=== PATIENT | male | born 1945 | race Caucasian/White ===

== ENCOUNTER 2016-12-19 19:46 | Outpatient (CLI) | payer MEDICARE, OTHER ==
--- NOTE | 2016-12-19 21:55 | Ultrasound Preliminary Report ---
Exam: US Duplex Ext Veins Bilateral IMPRESSION: Bilateral calf edema limiting assessment of the peroneal veins otherwise no evidence of d eep venous thrombosis. [facility] SITE ID: [id number]
--- NOTE | 2016-12-19 21:57 | Ultrasound Report ---
EXAM: BILATERAL LOWER EXTREMITY VENOUS ULTRASOUND EXAM DATE: 12/19/2016 09:36 PM. CLINICAL HISTORY: SWELLING OF BILATERAL LEGS, CELLULITIS OF LT LOWER. COMPARISON: None. TECHNIQUE: Real-time sonographic vascular imaging was performed by the nuclear medicine tech through the lower extremities utilizing both color-flow and Doppler spectral analysis. Multiple pharmacy services representative static i mages were saved for review. FINDINGS: Right: Common Femoral Vein (CFV): Normal. CFV-GSV Junction: Normal. Profunda Femoral Vein (PFV): Normal. Femoral Vein (FV) Prox: Normal. Femoral Vein (FV) Mid: Normal. Femoral Vein (FV) Dist: Normal. Popliteal Vein: Normal. Posterior Tibial Veins: Normal. Peroneal Veins: Suboptimal visualization due to edema. Left: Common Femoral Vein (CFV): Normal. CFV-GSV Junction: Normal. Profunda Femoral Vein (PFV): Normal. Femoral Vein (FV) Prox: Normal. Femoral Vein (FV) Mid: Normal. Femoral Vein (FV) Dist: Normal. Popliteal Vein: Normal. Posterior Tibial Veins: Normal. Peroneal Veins: Suboptimal visualization due to edema. Other: None. IMPRESSION: Bilateral calf edema limiting assessment of the peroneal veins otherwise no evidence of d eep venous thrombosis. [facility] Referring Provider Line: [phone] SITE ID: [id number]
== END 2016-12-19 19:47 | disposition home or self-care (01) ==
LOC: DI 19:46
PROVIDERS: ATTEND Family Medicine
DX: R60.0 Localized edema (principal)
CPT/HCPCS: 93970

== ENCOUNTER 2017-05-29 15:09 | Outpatient (CLI) | payer MEDICARE, OTHER ==
[2017-05-29 19:30] LABS: BASOPHILS % (AUTO) 0.4 %; EOSINOPHILS # (AUTO) 0.2 10^3/uL (0.0-0.7); EOSINOPHILS % (AUTO) 1.8 %; HGB - HEMOGLOBIN 16.4 g/dL (14.0-18.0); LYMPHOCYTES # (AUTO) 3.4 10^3/uL (1.5-3.5); LYMPHOCYTES % (AUTO) 39.6 %; MEAN CORPUSCULAR HEMOGLOBIN 31.1 pg (27.0-31.0); MEAN CORPUSCULAR VOLUME 94.5 fL (80.0-94.0); MEAN PLATELET VOLUME 8.7 fL (7.4-11.4); MONOCYTES # (AUTO) 0.7 10^3/uL (0.0-1.0); MONOCYTES % (AUTO) 7.7 %; NEUTROPHILS # (AUTO) 4.4 10^3/uL (1.5-6.6); NEUTROPHILS % (AUTO) 50.5 %; PLT - PLATELET COUNT 231 10^3/uL (130-450); RED BLOOD COUNT 5.27 10^6/uL (4.70-6.10); RED CELL DISTRIBUTION WIDTH 14.8 % (12.0-15.0); WHITE BLOOD COUNT 8.7 x10^3/uL (4.8-10.8)
[2017-05-29 19:33] LABS: ALBUMIN 4.5 g/dL (3.2-5.5); ALBUMIN/GLOBULIN RATIO 1.5 (1.0-2.2); BILIRUBIN,TOTAL 1.3 mg/dL (0.2-1.0); CALCIUM 9.6 mg/dL (8.5-10.3); CREATININE 0.8 mg/dL (0.6-1.2); TOTAL PROTEIN 7.5 g/dL (6.7-8.2)
== END 2017-05-29 15:10 | disposition home or self-care (01) ==
LOC: LAB.WCP 15:09
PROVIDERS: ATTEND Internal Medicine Rheumatology
DX: M05.79 Rheumatoid arthritis with rheumatoid factor of multiple sites without organ or systems involvement (principal)
CPT/HCPCS: 36415; 80053; 85025; 85651

== ENCOUNTER 2017-08-27 08:00 | Outpatient (CLI) | payer MEDICARE, OTHER ==
[2017-08-27 19:43] LABS: ALBUMIN 4.4 g/dL (3.2-5.5); ALBUMIN/GLOBULIN RATIO 1.4 (1.0-2.2); ALKALINE PHOSPHATASE 47 IU/L (42-121); ALT ALANINE AMINOTRANSFERASE 33 IU/L (10-60); AST ASPARTATE AMINOTRANSFERASE 30 IU/L (10-42); BILIRUBIN,TOTAL 0.9 mg/dL (0.2-1.0); BUN - BLOOD UREA NITROGEN 17 mg/dL (6-20); CARBON DIOXIDE - CO2 27 mmol/L (21-32); CHLORIDE 102 mmol/L (101-111); CHOL/HDL RATIO 3.8 (<5.0); CHOLESTEROL 117 mg/dL; CREATININE 0.8 mg/dL (0.6-1.2); GFR - MDRD 94 (>89); GLUCOSE 122 mg/dL (70-100); HDL CHOLESTEROL 31 mg/dL; LDL CHOLESTEROL,CALCULATED 48 mg/dL; LDL/HDL RATIO 1.5 (<3.6); SODIUM 137 mmol/L (135-145); TOTAL PROTEIN 7.5 g/dL (6.7-8.2); VLDL CHOLESTEROL 38 mg/dL
[2017-08-27 20:04] LABS: HB2 TOTAL 18.1 g/dL; HEMOGLOBIN A1C 0.68 g/dL; HEMOGLOBIN A1C % 5.6 % (4.6-6.2)
== END 2017-08-27 08:01 | disposition home or self-care (01) ==
LOC: LAB.WCP 08:00
PROVIDERS: ATTEND Family Medicine
DX: E11.9 Type 2 diabetes mellitus without complications (principal); J92.9 Pleural plaque without asbestos; I87.2 Venous insufficiency (chronic) (peripheral); J44.9 Chronic obstructive pulmonary disease, unspecified; M06.9 Rheumatoid arthritis, unspecified
CPT/HCPCS: 36415; 80053; 80061; 82043; 83036; 83721

== ENCOUNTER 2017-11-13 08:00 | Outpatient (CLI) | payer MEDICARE, OTHER ==
[2017-11-13 19:06] LABS: BASOPHILS % (AUTO) 0.3 %; EOSINOPHILS # (AUTO) 0.1 10^3/uL (0.0-0.7); EOSINOPHILS % (AUTO) 1.4 %; HGB - HEMOGLOBIN 16.8 g/dL (14.0-18.0); LYMPHOCYTES # (AUTO) 4.1 10^3/uL (1.5-3.5); LYMPHOCYTES % (AUTO) 42.7 %; MEAN CORPUSCULAR HEMOGLOBIN 32.8 pg (27.0-31.0); MEAN CORPUSCULAR HGB CONC 33.2 g/dL (32.0-36.0); MONOCYTES # (AUTO) 0.7 10^3/uL (0.0-1.0); MONOCYTES % (AUTO) 7.3 %; NEUTROPHILS # (AUTO) 4.6 10^3/uL (1.5-6.6); NEUTROPHILS % (AUTO) 48.3 %; PLT - PLATELET COUNT 259 10^3/uL (130-450); RED BLOOD COUNT 5.12 10^6/uL (4.70-6.10); RED CELL DISTRIBUTION WIDTH 13.6 % (12.0-15.0); WHITE BLOOD COUNT 9.5 x10^3/uL (4.8-10.8)
[2017-11-13 19:23] LABS: ALBUMIN 4.3 g/dL (3.2-5.5); ALBUMIN/GLOBULIN RATIO 1.1 (1.0-2.2); BILIRUBIN,TOTAL 1.4 mg/dL (0.2-1.0); CALCIUM 9.2 mg/dL (8.5-10.3); CREATININE 0.9 mg/dL (0.6-1.2); TOTAL PROTEIN 8.1 g/dL (6.7-8.2)
== END 2017-11-13 08:01 | disposition home or self-care (01) ==
LOC: LAB.WCP 08:00
PROVIDERS: ATTEND Internal Medicine Rheumatology
DX: M05.79 Rheumatoid arthritis with rheumatoid factor of multiple sites without organ or systems involvement (principal)
CPT/HCPCS: 36415; 80053; 85025; 85651

== ENCOUNTER 2018-03-05 14:20 | Outpatient (CLI) | payer MEDICARE, OTHER ==
[2018-03-05 18:55] LABS: BASOPHILS % (AUTO) 0.5 %; EOSINOPHILS # (AUTO) 0.2 10^3/uL (0.0-0.7); LYMPHOCYTES # (AUTO) 3.4 10^3/uL (1.5-3.5); LYMPHOCYTES % (AUTO) 35.9 %; MEAN CORPUSCULAR HEMOGLOBIN 32.5 pg (27.0-31.0); MEAN CORPUSCULAR HGB CONC 33.9 g/dL (32.0-36.0); MEAN CORPUSCULAR VOLUME 95.9 fL (80.0-94.0); MEAN PLATELET VOLUME 8.1 fL (7.4-11.4); MONOCYTES # (AUTO) 0.7 10^3/uL (0.0-1.0); MONOCYTES % (AUTO) 7.7 %; NEUTROPHILS # (AUTO) 5.1 10^3/uL (1.5-6.6); NEUTROPHILS % (AUTO) 53.9 %; PLT - PLATELET COUNT 250 10^3/uL (130-450); RED BLOOD COUNT 4.91 10^6/uL (4.70-6.10); RED CELL DISTRIBUTION WIDTH 13.8 % (12.0-15.0); WHITE BLOOD COUNT 9.5 x10^3/uL (4.8-10.8)
[2018-03-05 19:05] LABS: ALBUMIN 4.4 g/dL (3.2-5.5); ALBUMIN/GLOBULIN RATIO 1.5 (1.0-2.2); CALCIUM 9.4 mg/dL (8.5-10.3); CREATININE 0.8 mg/dL (0.6-1.2); TOTAL PROTEIN 7.3 g/dL (6.7-8.2)
== END 2018-03-05 14:21 | disposition home or self-care (01) ==
LOC: LAB.WCP 14:20
PROVIDERS: ATTEND Internal Medicine Rheumatology
DX: M05.79 Rheumatoid arthritis with rheumatoid factor of multiple sites without organ or systems involvement (principal)
CPT/HCPCS: 36415; 80053; 85025; 85651

== ENCOUNTER 2018-06-11 08:00 | Outpatient (CLI) | payer MEDICARE, OTHER ==
[2018-06-11 19:10] LABS: BASOPHILS % (AUTO) 0.4 %; EOSINOPHILS # (AUTO) 0.2 10^3/uL (0.0-0.7); HGB - HEMOGLOBIN 15.4 g/dL (14.0-18.0); LYMPHOCYTES # (AUTO) 3.7 10^3/uL (1.5-3.5); MEAN CORPUSCULAR HEMOGLOBIN 32.6 pg (27.0-31.0); MEAN CORPUSCULAR HGB CONC 33.6 g/dL (32.0-36.0); MEAN CORPUSCULAR VOLUME 97.1 fL (80.0-94.0); MEAN PLATELET VOLUME 8.5 fL (7.4-11.4); MONOCYTES # (AUTO) 0.9 10^3/uL (0.0-1.0); MONOCYTES % (AUTO) 8.3 %; NEUTROPHILS # (AUTO) 5.8 10^3/uL (1.5-6.6); NEUTROPHILS % (AUTO) 54.3 %; PLT - PLATELET COUNT 227 10^3/uL (130-450); RED BLOOD COUNT 4.73 10^6/uL (4.70-6.10); RED CELL DISTRIBUTION WIDTH 14.5 % (12.0-15.0); WHITE BLOOD COUNT 10.7 x10^3/uL (4.8-10.8)
[2018-06-11 19:43] LABS: ALBUMIN 4.1 g/dL (3.2-5.5); ALBUMIN/GLOBULIN RATIO 1.4 (1.0-2.2); BILIRUBIN,TOTAL 0.7 mg/dL (0.2-1.0); CREATININE 0.7 mg/dL (0.6-1.2); TOTAL PROTEIN 7.1 g/dL (6.7-8.2)
[2018-06-11 20:31] LABS: CALCIUM 9.3 mg/dL (8.5-10.3)
== END 2018-06-11 23:59 | disposition home or self-care (01) ==
LOC: LAB.WCP 08:00
PROVIDERS: ATTEND Internal Medicine Rheumatology
DX: M05.79 Rheumatoid arthritis with rheumatoid factor of multiple sites without organ or systems involvement (principal)
CPT/HCPCS: 36415; 80053; 85025; 85651

== ENCOUNTER 2018-11-26 08:00 | Outpatient (CLI) | payer MEDICARE, OTHER ==
[2018-11-26 18:39] LABS: BASOPHILS % (AUTO) 0.5 %; EOSINOPHILS # (AUTO) 0.1 10^3/uL (0.0-0.7); EOSINOPHILS % (AUTO) 1.4 %; LYMPHOCYTES # (AUTO) 3.1 10^3/uL (1.5-3.5); LYMPHOCYTES % (AUTO) 35.5 %; MEAN CORPUSCULAR HEMOGLOBIN 32.9 pg (27.0-31.0); MEAN CORPUSCULAR VOLUME 99.8 fL (80.0-94.0); MEAN PLATELET VOLUME 10.1 fL (7.4-11.4); MONOCYTES # (AUTO) 0.6 10^3/uL (0.0-1.0); MONOCYTES % (AUTO) 7.4 %; NEUTROPHILS # (AUTO) 4.7 10^3/uL (1.5-6.6); NEUTROPHILS % (AUTO) 54.5 %; PLT - PLATELET COUNT 225 10^3/uL (130-450); RED BLOOD COUNT 4.86 10^6/uL (4.70-6.10); RED CELL DISTRIBUTION WIDTH 13.6 % (12.0-15.0); WHITE BLOOD COUNT 8.6 x10^3/uL (4.8-10.8)
[2018-11-26 18:42] LABS: ALBUMIN 4.1 g/dL (3.2-5.5); ALBUMIN/GLOBULIN RATIO 1.2 (1.0-2.2); BILIRUBIN,TOTAL 1.3 mg/dL (0.2-1.0); CALCIUM 9.5 mg/dL (8.5-10.3); CREATININE 1.1 mg/dL (0.6-1.2); TOTAL PROTEIN 7.5 g/dL (6.7-8.2)
== END 2018-11-26 23:59 | disposition home or self-care (01) ==
LOC: LAB.WCP 08:00
PROVIDERS: ATTEND Internal Medicine Rheumatology
DX: M05.79 Rheumatoid arthritis with rheumatoid factor of multiple sites without organ or systems involvement (principal)
CPT/HCPCS: 36415; 80053; 85025; 85651

== ENCOUNTER 2019-01-22 08:00 | Outpatient (CLI) | payer MEDICARE, OTHER ==
[2019-01-22 11:53] LABS: CHOL/HDL RATIO 4.7 (<5.0); CHOLESTEROL 136 mg/dL; HDL CHOLESTEROL 29 mg/dL; LDL CHOLESTEROL,CALCULATED 52 mg/dL; LDL/HDL RATIO 1.8 (<3.6); VLDL CHOLESTEROL 55 mg/dL
== END 2019-01-22 23:59 ==
LOC: LAB.R 08:00
PROVIDERS: ATTEND Family Medicine
DX: I10 Essential (primary) hypertension (principal); E78.5 Hyperlipidemia, unspecified; I25.10 Atherosclerotic heart disease of native coronary artery without angina pectoris
CPT/HCPCS: 80061; 83721; 84443

== ENCOUNTER 2019-04-15 14:24 | Outpatient (CLI) | payer MEDICARE, OTHER ==
[2019-04-15 18:36] LABS: BASOPHILS % (AUTO) 0.4 %; EOSINOPHILS # (AUTO) 0.2 10^3/uL (0.0-0.7); EOSINOPHILS % (AUTO) 2.1 %; HGB - HEMOGLOBIN 15.6 g/dL (14.0-18.0); LYMPHOCYTES # (AUTO) 3.1 10^3/uL (1.5-3.5); LYMPHOCYTES % (AUTO) 38.2 %; MEAN CORPUSCULAR HEMOGLOBIN 31.8 pg (27.0-31.0); MEAN CORPUSCULAR VOLUME 99.4 fL (80.0-94.0); MEAN PLATELET VOLUME 10.1 fL (7.4-11.4); MONOCYTES # (AUTO) 0.6 10^3/uL (0.0-1.0); MONOCYTES % (AUTO) 7.4 %; NEUTROPHILS # (AUTO) 4.2 10^3/uL (1.5-6.6); NEUTROPHILS % (AUTO) 51.4 %; PLT - PLATELET COUNT 242 10^3/uL (130-450); RED CELL DISTRIBUTION WIDTH 13.7 % (12.0-15.0); WHITE BLOOD COUNT 8.2 x10^3/uL (4.8-10.8)
[2019-04-15 18:54] LABS: ALBUMIN 4.3 g/dL (3.2-5.5); ALBUMIN/GLOBULIN RATIO 1.3 (1.0-2.2); CALCIUM 9.6 mg/dL (8.5-10.3); CREATININE 1.1 mg/dL (0.6-1.2); TOTAL PROTEIN 7.5 g/dL (6.7-8.2)
== END 2019-04-15 23:59 | disposition home or self-care (01) ==
LOC: LAB.WCP 14:24
PROVIDERS: ATTEND Internal Medicine Rheumatology
DX: M05.79 Rheumatoid arthritis with rheumatoid factor of multiple sites without organ or systems involvement (principal)
CPT/HCPCS: 36415; 80053; 85025; 85651

== ENCOUNTER 2019-05-06 13:29 | Outpatient (CLI) | payer MEDICARE, OTHER ==
[2019-05-06 18:57] LABS: ALBUMIN 4.1 g/dL (3.2-5.5); ALBUMIN/GLOBULIN RATIO 1.2 (1.0-2.2); BILIRUBIN,TOTAL 1.1 mg/dL (0.2-1.0); CALCIUM 9.5 mg/dL (8.5-10.3); TOTAL PROTEIN 7.5 g/dL (6.7-8.2)
[2019-05-06 19:03] LABS: CREATININE,URINE 300.8 mg/dL; MICROALBUM/CREATININE RATIO,UR 126.7 ug/mg (<30.0); MICROALBUMIN,URINE 38.1 mg/dL (0-300.0)
[2019-05-06 19:10] LABS: HB2 TOTAL 16.1 g/dL; HEMOGLOBIN A1C 0.78 g/dL; HEMOGLOBIN A1C % 6.6 % (4.6-6.2)
[2019-05-07 12:06] LABS: HEPATITIS B SURFACE ANTIGEN NON-REACTIVE (NON-REACTIVE)
[2019-05-07 12:15] LABS: HEPATITIS C ANTIBODY NON-REACTIVE (NON-REACTIVE)
== END 2019-05-06 23:59 | disposition home or self-care (01) ==
LOC: LAB.WCP 13:29
PROVIDERS: ATTEND Family Medicine
DX: E11.9 Type 2 diabetes mellitus without complications (principal); J32.9 Chronic sinusitis, unspecified; J44.9 Chronic obstructive pulmonary disease, unspecified; I25.10 Atherosclerotic heart disease of native coronary artery without angina pectoris; R74.0 Nonspecific elevation of levels of transaminase and lactic acid dehydrogenase [LDH]
CPT/HCPCS: 36415; 80053; 82043; 82570; 83036; 84443; 86803; 87340

== ENCOUNTER 2020-01-06 08:00 | Outpatient (CLI) | payer MEDICARE, OTHER ==
[2020-01-06 18:47] LABS: BASOPHILS % (AUTO) 0.4 %; EOSINOPHILS # (AUTO) 0.2 10^3/uL (0.0-0.7); EOSINOPHILS % (AUTO) 2.1 %; HGB - HEMOGLOBIN 14.8 g/dL (14.0-18.0); LYMPHOCYTES # (AUTO) 2.3 10^3/uL (1.5-3.5); LYMPHOCYTES % (AUTO) 25.6 %; MEAN CORPUSCULAR HEMOGLOBIN 32.6 pg (27.0-31.0); MEAN CORPUSCULAR HGB CONC 32.2 g/dL (32.0-36.0); MEAN CORPUSCULAR VOLUME 101.3 fL (80.0-94.0); MEAN PLATELET VOLUME 10.1 fL (7.4-11.4); MONOCYTES # (AUTO) 0.7 10^3/uL (0.0-1.0); MONOCYTES % (AUTO) 7.1 %; NEUTROPHILS # (AUTO) 5.8 10^3/uL (1.5-6.6); NEUTROPHILS % (AUTO) 64.1 %; PLT - PLATELET COUNT 248 10^3/uL (130-450); RED BLOOD COUNT 4.54 10^6/uL (4.70-6.10); RED CELL DISTRIBUTION WIDTH 13.8 % (12.0-15.0); WHITE BLOOD COUNT 9.1 x10^3/uL (4.8-10.8)
[2020-01-06 18:54] LABS: CREATININE,URINE 208.8 mg/dL; MICROALBUM/CREATININE RATIO,UR 138.9 ug/mg (<30.0)
[2020-01-06 19:15] LABS: ALBUMIN 4.1 g/dL (3.2-5.5); ALBUMIN/GLOBULIN RATIO 1.2 (1.0-2.2); BILIRUBIN,TOTAL 0.7 mg/dL (0.2-1.0); CALCIUM 9.3 mg/dL (8.5-10.3); CREATININE 0.9 mg/dL (0.6-1.2); TOTAL PROTEIN 7.5 g/dL (6.7-8.2)
[2020-01-06 19:29] LABS: HB2 TOTAL 15.4 g/dL; HEMOGLOBIN A1C 0.71 g/dL; HEMOGLOBIN A1C % 6.4 % (4.6-6.2)
== END 2020-01-06 23:59 | disposition home or self-care (01) ==
LOC: LAB.WCP 08:00
PROVIDERS: ATTEND Family Medicine
DX: M05.79 Rheumatoid arthritis with rheumatoid factor of multiple sites without organ or systems involvement (principal); E11.9 Type 2 diabetes mellitus without complications; F41.9 Anxiety disorder, unspecified; I10 Essential (primary) hypertension; J32.9 Chronic sinusitis, unspecified; J44.9 Chronic obstructive pulmonary disease, unspecified; I25.10 Atherosclerotic heart disease of native coronary artery without angina pectoris
CPT/HCPCS: 36415; 80048; 80053; 82043; 82570; 83036; 85025; 85651

== ENCOUNTER 2020-03-30 08:00 | Outpatient (CLI) | payer MEDICARE, OTHER ==
[2020-03-30 18:10] LABS: BASOPHILS % (AUTO) 0.2 %; EOSINOPHILS # (AUTO) 0.1 10^3/uL (0.0-0.7); EOSINOPHILS % (AUTO) 1.3 %; HGB - HEMOGLOBIN 15.8 g/dL (14.0-18.0); LYMPHOCYTES # (AUTO) 3.3 10^3/uL (1.5-3.5); LYMPHOCYTES % (AUTO) 34.9 %; MEAN CORPUSCULAR HEMOGLOBIN 32.5 pg (27.0-31.0); MEAN CORPUSCULAR HGB CONC 33.1 g/dL (32.0-36.0); MEAN CORPUSCULAR VOLUME 98.4 fL (80.0-94.0); MEAN PLATELET VOLUME 10.7 fL (7.4-11.4); MONOCYTES # (AUTO) 0.7 10^3/uL (0.0-1.0); MONOCYTES % (AUTO) 7.7 %; NEUTROPHILS # (AUTO) 5.3 10^3/uL (1.5-6.6); NEUTROPHILS % (AUTO) 55.4 %; PLT - PLATELET COUNT 248 10^3/uL (130-450); RED BLOOD COUNT 4.86 10^6/uL (4.70-6.10); RED CELL DISTRIBUTION WIDTH 13.3 % (12.0-15.0); WHITE BLOOD COUNT 9.5 x10^3/uL (4.8-10.8)
[2020-03-30 18:28] LABS: ALBUMIN 4.1 g/dL (3.2-5.5); ALBUMIN/GLOBULIN RATIO 1.3 (1.0-2.2); BILIRUBIN,TOTAL 0.8 mg/dL (0.2-1.0); CREATININE 0.9 mg/dL (0.6-1.2); TOTAL PROTEIN 7.3 g/dL (6.7-8.2)
== END 2020-03-30 23:59 | disposition home or self-care (01) ==
LOC: LAB.WCP 08:00
PROVIDERS: ATTEND Internal Medicine Rheumatology
DX: M05.79 Rheumatoid arthritis with rheumatoid factor of multiple sites without organ or systems involvement (principal)
CPT/HCPCS: 36415; 80053; 85025; 85651

== ENCOUNTER 2020-07-12 08:00 | Outpatient (CLI) | payer MEDICARE, OTHER ==
[2020-07-12 18:54] LABS: CREATININE,URINE 268.4 mg/dL; MICROALBUMIN,URINE 9.4 mg/dL (0-300.0)
[2020-07-12 19:23] LABS: CHOL/HDL RATIO 4.2 (<5.0); CHOLESTEROL 130 mg/dL; HDL CHOLESTEROL 31 mg/dL; LDL CHOLESTEROL,CALCULATED 28 mg/dL; LDL/HDL RATIO 0.9 (<3.6); VLDL CHOLESTEROL 71 mg/dL
[2020-07-12 20:46] LABS: HEMOGLOBIN A1c% 5.7 % (4.27-6.07)
== END 2020-07-12 23:59 | disposition home or self-care (01) ==
LOC: LAB.WCP 08:00
PROVIDERS: ATTEND Family Medicine
DX: E11.9 Type 2 diabetes mellitus without complications (principal); I25.10 Atherosclerotic heart disease of native coronary artery without angina pectoris; G47.33 Obstructive sleep apnea (adult) (pediatric)
CPT/HCPCS: 36415; 80061; 82043; 82570; 83036; 83721; 84443

== ENCOUNTER 2020-09-28 14:36 | Outpatient (CLI) | payer MEDICARE, OTHER ==
[2020-09-28 18:04] LABS: BASOPHILS % (AUTO) 0.3 %; EOSINOPHILS # (AUTO) 0.2 10^3/uL (0.0-0.7); EOSINOPHILS % (AUTO) 1.8 %; HCT - HEMATOCRIT 48.7 % (42.0-52.0); HGB - HEMOGLOBIN 16.1 g/dL (14.0-18.0); LYMPHOCYTES # (AUTO) 4.2 10^3/uL (1.5-3.5); LYMPHOCYTES % (AUTO) 41.6 %; MEAN CORPUSCULAR HEMOGLOBIN 32.7 pg (27.0-31.0); MEAN CORPUSCULAR HGB CONC 33.1 g/dL (32.0-36.0); MEAN PLATELET VOLUME 10.4 fL (7.4-11.4); MONOCYTES # (AUTO) 0.8 10^3/uL (0.0-1.0); NEUTROPHILS # (AUTO) 4.8 10^3/uL (1.5-6.6); NEUTROPHILS % (AUTO) 47.8 %; PLT - PLATELET COUNT 247 10^3/uL (130-450); RED BLOOD COUNT 4.92 10^6/uL (4.70-6.10); RED CELL DISTRIBUTION WIDTH 13.5 % (12.0-15.0)
[2020-09-28 18:54] LABS: ALBUMIN 4.6 g/dL (3.2-5.5); ALBUMIN/GLOBULIN RATIO 1.4 (1.0-2.2); BILIRUBIN,TOTAL 0.9 mg/dL (0.2-1.0); CALCIUM 9.6 mg/dL (8.5-10.3); CREATININE 0.9 mg/dL (0.6-1.2); POTASSIUM 4.3 mmol/L (3.5-5.0); TOTAL PROTEIN 7.9 g/dL (6.7-8.2)
== END 2020-09-28 23:59 | disposition home or self-care (01) ==
LOC: LAB.WCP 14:36
PROVIDERS: ATTEND Internal Medicine Rheumatology
DX: M05.79 Rheumatoid arthritis with rheumatoid factor of multiple sites without organ or systems involvement (principal)
CPT/HCPCS: 36415; 80053; 85025; 85651

== ENCOUNTER 2021-01-18 08:00 | Outpatient (CLI) | payer MEDICARE, OTHER ==
[2021-01-18 17:57] LABS: BASOPHILS # (AUTO) 0.1 10^3/uL (0.0-0.1); BASOPHILS % (AUTO) 0.5 %; EOSINOPHILS # (AUTO) 0.2 10^3/uL (0.0-0.7); HCT - HEMATOCRIT 48.5 % (42.0-52.0); HGB - HEMOGLOBIN 15.8 g/dL (14.0-18.0); LYMPHOCYTES # (AUTO) 4.4 10^3/uL (1.5-3.5); LYMPHOCYTES % (AUTO) 43.3 %; MEAN CORPUSCULAR HEMOGLOBIN 32.6 pg (27.0-31.0); MEAN CORPUSCULAR HGB CONC 32.6 g/dL (32.0-36.0); MEAN CORPUSCULAR VOLUME 100.2 fL (80.0-94.0); MEAN PLATELET VOLUME 10.3 fL (7.4-11.4); MONOCYTES # (AUTO) 0.8 10^3/uL (0.0-1.0); MONOCYTES % (AUTO) 7.4 %; NEUTROPHILS # (AUTO) 4.8 10^3/uL (1.5-6.6); NEUTROPHILS % (AUTO) 46.4 %; PLT - PLATELET COUNT 252 10^3/uL (130-450); RED BLOOD COUNT 4.84 10^6/uL (4.70-6.10); RED CELL DISTRIBUTION WIDTH 13.4 % (12.0-15.0); WHITE BLOOD COUNT 10.3 x10^3/uL (4.8-10.8)
[2021-01-18 18:18] LABS: ALBUMIN 4.1 g/dL (3.2-5.5); ALBUMIN/GLOBULIN RATIO 1.2 (1.0-2.2); BILIRUBIN,TOTAL 1.2 mg/dL (0.2-1.0); CALCIUM 9.6 mg/dL (8.5-10.3); CREATININE 1.2 mg/dL (0.6-1.2); POTASSIUM 4.4 mmol/L (3.5-5.0); TOTAL PROTEIN 7.6 g/dL (6.7-8.2)
== END 2021-01-18 23:59 | disposition home or self-care (01) ==
LOC: LAB.WCP 08:00
PROVIDERS: ATTEND Internal Medicine Rheumatology
DX: M05.79 Rheumatoid arthritis with rheumatoid factor of multiple sites without organ or systems involvement (principal)
CPT/HCPCS: 36415; 80053; 85025; 85651

== ENCOUNTER 2021-04-26 08:00 | Outpatient (CLI) | payer MEDICARE, OTHER ==
[2021-04-26 18:20] LABS: BASOPHILS # (AUTO) 0.1 10^3/uL (0.0-0.1); BASOPHILS % (AUTO) 0.4 %; EOSINOPHILS # (AUTO) 0.3 10^3/uL (0.0-0.7); EOSINOPHILS % (AUTO) 2.5 %; HCT - HEMATOCRIT 46.7 % (42.0-52.0); HGB - HEMOGLOBIN 15.8 g/dL (14.0-18.0); LYMPHOCYTES % (AUTO) 40.1 %; MEAN CORPUSCULAR HEMOGLOBIN 33.2 pg (27.0-31.0); MEAN CORPUSCULAR HGB CONC 33.8 g/dL (32.0-36.0); MEAN CORPUSCULAR VOLUME 98.1 fL (80.0-94.0); MONOCYTES % (AUTO) 8.2 %; NEUTROPHILS % (AUTO) 48.4 %; PLT - PLATELET COUNT 275 10^3/uL (130-450); RED BLOOD COUNT 4.76 10^6/uL (4.70-6.10); RED CELL DISTRIBUTION WIDTH 13.2 % (12.0-15.0); WHITE BLOOD COUNT 12.4 x10^3/uL (4.8-10.8)
[2021-04-26 18:31] LABS: ALBUMIN 4.4 g/dL (3.2-5.5); ALBUMIN/GLOBULIN RATIO 1.3 (1.0-2.2); BILIRUBIN,TOTAL 0.7 mg/dL (0.2-1.0); CALCIUM 9.5 mg/dL (8.5-10.3); CREATININE 0.8 mg/dL (0.6-1.2); POTASSIUM 4.6 mmol/L (3.5-5.0); TOTAL PROTEIN 7.7 g/dL (6.7-8.2)
== END 2021-04-26 23:59 | disposition home or self-care (01) ==
LOC: LAB.WCP 08:00
PROVIDERS: ATTEND Internal Medicine Rheumatology
DX: M05.79 Rheumatoid arthritis with rheumatoid factor of multiple sites without organ or systems involvement (principal)
CPT/HCPCS: 36415; 80053; 85025; 85651

== ENCOUNTER 2022-03-01 15:54 | Outpatient (CLI) | payer MEDICARE, OTHER ==
[2022-03-01 18:16] LABS: ALBUMIN 3.9 g/dL (3.2-5.5); ALBUMIN/GLOBULIN RATIO 1.3 (1.0-2.2); CREATININE 0.9 mg/dL (0.6-1.2); POTASSIUM 4.6 mmol/L (3.5-5.0); TOTAL PROTEIN 6.8 g/dL (6.7-8.2)
[2022-03-01 18:18] LABS: BASOPHILS % (AUTO) 0.4 %; EOSINOPHILS # (AUTO) 0.2 10^3/uL (0.0-0.7); EOSINOPHILS % (AUTO) 2.5 %; HCT - HEMATOCRIT 42.5 % (42.0-52.0); HGB - HEMOGLOBIN 13.9 g/dL (14.0-18.0); LYMPHOCYTES # (AUTO) 3.1 10^3/uL (1.5-3.5); LYMPHOCYTES % (AUTO) 37.3 %; MEAN CORPUSCULAR HEMOGLOBIN 32.6 pg (27.0-31.0); MEAN CORPUSCULAR HGB CONC 32.7 g/dL (32.0-36.0); MEAN CORPUSCULAR VOLUME 99.8 fL (80.0-94.0); MEAN PLATELET VOLUME 11.2 fL (7.4-11.4); MONOCYTES # (AUTO) 0.7 10^3/uL (0.0-1.0); MONOCYTES % (AUTO) 8.3 %; NEUTROPHILS # (AUTO) 4.3 10^3/uL (1.5-6.6); NEUTROPHILS % (AUTO) 51.3 %; PLT - PLATELET COUNT 189 10^3/uL (130-450); RED BLOOD COUNT 4.26 10^6/uL (4.70-6.10); RED CELL DISTRIBUTION WIDTH 14.2 % (12.0-15.0); WHITE BLOOD COUNT 8.3 x10^3/uL (4.8-10.8)
[2022-03-01 18:27] LABS: THYROID STIMULATING HORMONE 3.71 uIU/mL (0.34-5.60)
[2022-03-01 20:28] LABS: ESTIMATED AVERAGE GLUCOSE 128 mg/dL (70-100); HEMOGLOBIN A1c% 6.1 % (4.27-6.07)
== END 2022-03-01 23:59 | disposition home or self-care (01) ==
LOC: LAB.N 15:54
PROVIDERS: ATTEND Family Medicine
DX: E11.9 Type 2 diabetes mellitus without complications (principal); I25.10 Atherosclerotic heart disease of native coronary artery without angina pectoris; J44.9 Chronic obstructive pulmonary disease, unspecified
CPT/HCPCS: 36415; 80053; 83036; 83880; 84443; 85025

== ENCOUNTER 2022-03-08 12:15 | Outpatient (CLI) | payer MEDICARE, OTHER | END 2022-03-08 12:16 | disposition home or self-care (01) | LOC: DI 12:15 | PROVIDERS: ATTEND Family Medicine | DX: R06.09 Other forms of dyspnea (principal); I25.10 Atherosclerotic heart disease of native coronary artery without angina pectoris; I51.7 Cardiomegaly; I08.1 Rheumatic disorders of both mitral and tricuspid valves; I49.49 Other premature depolarization; I87.8 Other specified disorders of veins | CPT/HCPCS: 93306 ==

== ENCOUNTER 2022-05-01 11:13 | Outpatient (CLI) | payer MEDICARE, OTHER ==
[2022-05-01 17:59] LABS: CALCIUM 9.5 mg/dL (8.5-10.3); CREATININE 1.2 mg/dL (0.6-1.2); POTASSIUM 4.7 mmol/L (3.5-5.0)
[2022-05-01 18:00] LABS: HCT - HEMATOCRIT 47.1 % (42.0-52.0); HGB - HEMOGLOBIN 15.5 g/dL (14.0-18.0); MEAN CORPUSCULAR HGB CONC 32.9 g/dL (32.0-36.0); MEAN CORPUSCULAR VOLUME 100.2 fL (80.0-94.0); MEAN PLATELET VOLUME 10.9 fL (7.4-11.4); RED BLOOD COUNT 4.7 10^6/uL (4.70-6.10); RED CELL DISTRIBUTION WIDTH 13.4 % (12.0-15.0); WHITE BLOOD COUNT 8.8 x10^3/uL (4.8-10.8)
== END 2022-05-01 11:14 | disposition home or self-care (01) ==
LOC: LAB.N 11:13
PROVIDERS: ATTEND Family Medicine
DX: I27.20 Pulmonary hypertension, unspecified (principal); I27.81 Cor pulmonale (chronic); I50.810 Right heart failure, unspecified
CPT/HCPCS: 36415; 80048; 83880; 85027

== ENCOUNTER 2022-08-31 14:54 | Outpatient (CLI) | payer MEDICARE, OTHER ==
[2022-08-31 15:32] LABS: ALBUMIN 4.4 g/dL (3.2-5.5); ALBUMIN/GLOBULIN RATIO 1.3 (1.0-2.2); BILIRUBIN,TOTAL 1.1 mg/dL (0.2-1.0); CALCIUM 9.3 mg/dL (8.5-10.3); CREATININE 0.9 mg/dL (0.6-1.2); POTASSIUM 4.6 mmol/L (3.5-5.0); TOTAL PROTEIN 7.8 g/dL (6.7-8.2)
== END 2022-08-31 14:55 | disposition home or self-care (01) ==
LOC: LAB 14:54
PROVIDERS: ATTEND Internal Medicine Cardiovascular Disease
DX: I10 Essential (primary) hypertension (principal); R06.09 Other forms of dyspnea; M06.9 Rheumatoid arthritis, unspecified
CPT/HCPCS: 36415; 80053; 83880; 85651

== ENCOUNTER 2022-09-10 12:16 | Outpatient (CLI) | payer MEDICARE, OTHER | END 2022-09-10 23:59 | disposition critical access hospital (66) | LOC: EMS 12:16 | DX: M54.6 Pain in thoracic spine (principal); M54.50 Low back pain, unspecified; W17.89XA Other fall from one level to another, initial encounter; Y93.H9 Activity, other involving exterior property and land maintenance, building and construction; Y92.007 Garden or yard of unspecified non-institutional (private) residence as the place of occurrence of the external cause | CPT/HCPCS: A0425; A0427 ==

== ENCOUNTER 2022-09-10 12:47 | Emergency (ER) | payer MEDICARE, OTHER ==
[2022-09-10] MEDS ORDERED: HYDROmorphone 1 MG/ML CARPUJECT IVP STA ×2 (12:54→15:12)
--- NOTE | 2022-09-10 12:56 | ED Physician Documentation ---
PD HPI BACK PAIN - Stated complaint Stated Complaint: FALL FROM MOWER - History obtained from History obtained from: Patient - Additional information Additional information: 77-year-old gentleman with coronary disease, rheumatoid arthritis, hypertension, hyperlipidemia, diabetes presents after a fall from a lawnmower. He was mowing a slope on a riding mower. The slope was too steep and the back wheels gave out and he flipped the riding mower with him in it. There was a bar that hit the back of his head and then pushed his head onto his chest and then another bar hit him between the shoulder blades which is the current site of major pain. No loss of consciousness. He has no headache. He has slight increase in chronic lower back pain. On arrival he has received 50 mcg of fentanyl on the way with incomplete relief of his pain. PD PAST MEDICAL HISTORY - Past Medical History Cardiovascular: Hypertension, High cholesterol, Angina, [place] Respiratory: COPD, Pneumonia, Sleep apnea, Other Endocrine/Autoimmune: Type 2 diabetes GI: None : None HEENT: Chronic vision loss Psych: Depression Musculoskeletal: Osteoarthritis, Rheumatoid arthritis, Gout, Chronic back pain Derm: None - Past Surgical History Past Surgical History: Yes Ortho: Hip replacement, Other Cardiovascular: Cardiac catheterization HEENT: Cataracts - Present Medications Home Medications: Ambulatory Orders Medication Instructions Recorded Confirmed Atorvastatin Calcium 20 mg PO QPM 02/06/13 09/10/22 Metformin HCl 500 mg PO BID 02/06/13 09/10/22 Methotrexate [Methotrexate Sodium] 10 mg PO FR 11/24/15 09/10/22 Folic Acid 1 mg PO DAILY 04/10/16 09/10/22 Montelukast Sodium 4 mg PO DAILY PM 10/18/17 09/10/22 Aspirin [Aspirin EC] 81 mg PO DAILY 02/07/18 09/10/22 Multivitamin [Multiple Vitamins] 1 tab PO DAILY 01/22/19 09/10/22 Furosemide [Lasix] 40 mg PO DAILY 09/10/22 09/10/22 HYDROcod/ACETAM 5/325 [Michie 5/325] 1 - 2 tab PO Q6H PRN #15 tablet 09/10/22 Metoprolol Succinate [Toprol Xl] 25 mg PO DAILY 09/10/22 09/10/22 Spironolactone [Aldactone] 12.5 mg PO DAILY 09/10/22 09/10/22 amLODIPine [Norvasc] 5 mg PO DAILY 09/10/22 09/10/22 glipiZIDE [Glipizide ER] 2.5 mg PO DAILY 09/10/22 09/10/22 inFLIXimab [Remicade] 1 infus.set IV ONCE 09/10/22 09/10/22 - Allergies Allergies/Adverse Reactions: Allergies Allergy/AdvReac Type Severity Reaction Status Date / Time No Known Drug Allergies Allergy Verified 09/10/22 12:56 - Social History Does the pt smoke?: No Smoking Status: Never smoker Does the pt drink ETOH?: No Does the pt have substance abuse?: No - Immunizations Immunizations are current?: Yes - POLST Patient has POLST: No PD ED PE NORMAL - Vitals Vital signs reviewed: Yes - General General: Alert and oriented X 3, No acute distress - HEENT HEENT: PERRL, EOMI - Neck Neck: Supple, no meningeal sign, No bony TTP - Cardiac Cardiac: RRR, No murmur - Respiratory Respiratory: No respiratory distress, Clear bilaterally - Abdomen Abdomen: Normal bowel sounds, Soft, Non tender - Back Back: No CVA TTP, Other (Tender with significant swelling of the upper mid back. Multiple sebaceous cysts in that area.) - Derm Derm: Normal color, Warm and dry - Neuro Neuro: Alert and oriented X 3, No motor deficit, No sensory deficit, Normal speech Eye Opening: Spontaneous Motor: Obeys Commands Verbal: Oriented GCS Score: 15 Results - Vitals Vitals: Vital Signs - 24 hr 09/10/22 09/10/22 12:58 13:40 Temperature 36.4 C L Heart Rate 72 76 Respiratory 20 19 Rate Blood Pressure 128/59 L 138/74 H O2 Saturation 91 L 97 If not protocol 2 : Oxygen Flow, liters/minute Oxygen O2 Source Nasal cannula - Labs Labs: Laboratory Tests 09/10/22 09/10/22 09/10/22 12:56 12:56 13:06 WBC 20.0 H RBC 4.48 L Hgb 14.7 Hct 43.9 MCV 98.0 H MCH 32.8 H MCHC 33.5 RDW 13.5 Plt Count 237 MPV 10.1 Neut # (Auto) 14.2 H Lymph # (Auto) 4.0 H [place] # (Auto) 1.1 H Eos # (Auto) 0.3 Baso # (Auto) 0.1 Absolute Nucleated RBC 0.00 Nucleated RBC % 0.0 PT 11.9 INR 1.1 Sodium 139 Potassium 5.2 H Chloride 104 Carbon Dioxide 27 Anion Gap 8.0 BUN 28 H Creatinine 1.1 Estimated GFR (MDRD) 65 L Glucose 194 H Calcium 9.7 Total Bilirubin 0.8 AST 53 H ALT 36 Alkaline Phosphatase 40 L Total Protein 7.6 Albumin 4.2 Globulin 3.4 Albumin/Globulin Ratio 1.2 Lipase 36 - Rads (name of study) CT of the head without contrast is unremarkable save chronic microvascular ischemic disease Relevant Findings:: Final report received, EMP independent interpretation of test CT of the cervical spine is without acute abnormality. Moderate to severe degenerative changes. Relevant Findings:: Final report received, EMP independent interpretation of test CT of the chest with IV contrast without acute trauma Relevant Findings:: Final report received (Trace right pleural fluid, mild bronchial wall thickening), EMP independent interpretation of test (I do think there is some thickening consistent with hematoma in the skin of the mid upper back) CT of the thoracic spine is without acute trauma Relevant Findings:: Final report received, EMP independent interpretation of test CT of the abdomen pelvis demonstrates bilateral nephroliths, no trauma. Relevant Findings:: Final report received, EMP independent interpretation of test CT of the lumbar spine was negative for acute trauma. Relevant Findings:: Final report received, EMP independent interpretation of test PD Medical Decision Making - ED course Complexity details: reviewed results (CBC notable for leukocytosis at 20,000 probably consistent with leukemoid reaction, INR is normal, CMP notable for mild hyperkalemia and elevated BUN and glucose.) ED course: 77-year-old gentleman flipped over in a riding lawn [employer]. Main site of pain is between the shoulder blades where there appears to be some hematoma/swelling. Because of his age, and the mechanism, a silveira scan was done without other pertinent positive traumatic findings. Incidental findings were shared with the patient. 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 As discussed, there was no specific trauma seen on extensive imaging, that said you do have incidental kidney stones which may or may not bother you at a later date. Call your doctor to arrange a follow-up appointment, make the next available appointment. In the interim, return anytime if worse or if new symptoms develop. I am prescribing a short course of narcotic pain medication for you. These are potentially dangerous and addictive medications that should be used carefully. These medications may constipate you. Take an [id number] stool softener (docusate) twice daily with plenty of water while taking these medications. If you go 24 hours without a bowel movement, take [id number] miralax, per package instructions. Do not drink or drive while taking these medications. If you received narcotic or sedating medications while in the emergency department, do not drive for 24 hours. Store this medication in a safe, secure place and out of reach of children. It is a violation of federal law to give or sell this medication to another person or to use in a manner other than prescribed. The ED will not refill narcotic prescriptions, including prescriptions lost or stolen. To dispose of unwanted medications: 1. [facility] at [address] in [place] has a medication drop box. They accept prescription medications (in pill form) Saturday through Saturday 9:00 a.m. to 5:00 p.m. 2. The [facility] [employer] accepts prescription medications (in pill form only) for disposal year round. Call for more information. 3. Contact the [facility] for the next [facility] sponsored prescription drug collection event. , [phone], or [phone]; Note that many narcotic pain relievers also contain Tylenol/acetaminophen. Please ensure that your total dose of acetaminophen from all sources does not exceed 3 g (3000 mg) per day.
[2022-09-10] MEDS ORDERED: iohexoL-300 100 ML VIAL ONE (13:01)
[2022-09-10 13:03] LABS: BASOPHILS # (AUTO) 0.1 10^3/uL (0.0-0.1); BASOPHILS % (AUTO) 0.4 %; EOSINOPHILS # (AUTO) 0.3 10^3/uL (0.0-0.7); EOSINOPHILS % (AUTO) 1.3 %; HCT - HEMATOCRIT 43.9 % (42.0-52.0); HGB - HEMOGLOBIN 14.7 g/dL (14.0-18.0); MEAN CORPUSCULAR HEMOGLOBIN 32.8 pg (27.0-31.0); MEAN CORPUSCULAR HGB CONC 33.5 g/dL (32.0-36.0); MEAN PLATELET VOLUME 10.1 fL (7.4-11.4); MONOCYTES # (AUTO) 1.1 10^3/uL (0.0-1.0); MONOCYTES % (AUTO) 5.5 %; NEUTROPHILS # (AUTO) 14.2 10^3/uL (1.5-6.6); NEUTROPHILS % (AUTO) 71.1 %; PLT - PLATELET COUNT 237 10^3/uL (130-450); RED BLOOD COUNT 4.48 10^6/uL (4.70-6.10); RED CELL DISTRIBUTION WIDTH 13.5 % (12.0-15.0)
[2022-09-10 13:23] LABS: ALBUMIN 4.2 g/dL (3.2-5.5); ALBUMIN/GLOBULIN RATIO 1.2 (1.0-2.2); BILIRUBIN,TOTAL 0.8 mg/dL (0.2-1.0); CALCIUM 9.7 mg/dL (8.5-10.3); CREATININE 1.1 mg/dL (0.6-1.2); POTASSIUM 5.2 mmol/L (3.5-5.0); TOTAL PROTEIN 7.6 g/dL (6.7-8.2)
[2022-09-10 13:23] LABS: INR 1.1 (0.8-1.2); PT - PROTHROMBIN TIME 11.9 secs (9.9-12.6)
--- OUTSIDE RECORDS SUMMARY | 2022-09-10 13:56 | EXTERNAL MEDICAL SUMMARY RPT | Continuity of Care Document ---
:1945 Author Organization [facility] Address [address] [place] [address] Phone Allergies No information. Encounters No information. Functional Status No information. Immunizations No information. Medications No information. Problems date description facility 2022-08-29 12:11 Chronic diastolic (congestive) heart fa [facility] Procedures No information. Results/Labs test date author facility value unit interpret ation Result panel 1 (unknown) (no (unknown) (unknown) (no value) (units (unk nown) date) unknown) (unknown) (no (unknown) (unknown) +---------+ (units (un known) date) [phone] +--------- unknown) (unknown) (no (unknown) (unknown) +---------+ (units (un known) date) Hospital +--------- unknown) (unknown) (no (unknown) (unknown) + (units (unknown) date) unknown) --- (unknown) (no (unknown) (unknown) [id number] (units (unkno wn) date) unknown) (unknown) (no (unknown) (unknown) 08/29/22 (units (unkno wn) date) unknown) (unknown) (no (unknown) (unknown) 1) Mildly dilated (units (unknown) date) left ventricle with unknown) normal systolic function (EF 55-60%). (unknown) (no (unknown) (unknown) [address] (units (unknown) date) unknown) (unknown) (no (unknown) (unknown) 2) There are no (units (unknown) date) obvious focal wall unknown) motion abnormalities noted but poor (unknown) (no (unknown) (unknown) 3) Mildly enlarged (units (unknown) date) right ventricle unknown) with normal function. (unknown) (no (unknown) (unknown) 4) No significant (units (unknown) date) valvular unknown) abnormalities. (unknown) (no (unknown) (unknown) 5) The right (units (u nknown) date) ventricular unknown) systolic pressure is estimated to be at least 44 mmHg (unknown) (no (unknown) (unknown) 6) No prior Echo (units (unknown) date) available for unknown) comparison. (unknown) (no (unknown) (unknown) : : [address] (units (unknown) date) : : unknown) (unknown) (no (unknown) (unknown) : : [id number] : : (units ( unknown) date) unknown) (unknown) (no (unknown) (unknown) : : RALEIGH Vieira (units (unknown) date) : : unknown) (unknown) (no (unknown) (unknown) : : Phone: [phone] (units (unknown) date) : unknown) (unknown) (no (unknown) (unknown) :Account #: (units (un known) date) [id number] Gender: unknown) Male BSA: 2.6 m2 : (unknown) (no (unknown) (unknown) :BHRIGU Performed (units (unknown) date) By: DIANE HARRELL : unknown) (unknown) (no (unknown) (unknown) :: 1945 (units (unknown) date) Age: 77 yrs BP: unknown) 148/66 mmHg: (unknown) (no (unknown) (unknown) :Hospital MRN #: (units (unknown) date) [id number] unknown) ReadingLocation: Weight: 320 lb : (unknown) (no (unknown) (unknown) :Name: VINCENTMICHELLE, (units (unknown) date) IVAN Pierre Study Date: unknown) 08/29/2022 Height: 72 in : (unknown) (no (unknown) (unknown) :Ordering (units (unkn own) date) Physician: JOHN, unknown) : (unknown) (no (unknown) (unknown) :Reason For Study: (units (unknown) date) CHRONIC DIASTOLIC unknown) CONGESTIVE HEART FAILURE HR: 52 : (unknown) (no (unknown) (unknown) :Referring: (units (un known) date) KAESY MATOS : unknown) (unknown) (no (unknown) (unknown) sev ratio: 0.77 (units (unknown) date) unknown) (unknown) (no (unknown) (unknown) FREIDA indexed to BSA (units (unknown) date) (cm2/m2): 1.1 unknown) (unknown) (no (unknown) (unknown) Accession Number: (units (unknown) date) [id number] unknown) (unknown) (no (unknown) (unknown) Age/Sex: 77 / M (units (unknown) date) Date of Service: unknown) (unknown) (no (unknown) (unknown) [place], [place] (units ( unknown) date) [id number] unknown) (unknown) (no (unknown) (unknown) Ao V2 VTI: 33.8 cm (units (unknown) date) FREIDA(V,D): 2.7 cm2 unknown) (unknown) (no (unknown) (unknown) Ao V2 max: 144.8 (units (unknown) date) cm/sec LVOT Max unknown) Hiral: 107.1 cm/sec (unknown) (no (unknown) (unknown) Ao V2 mean: 112.3 (units (unknown) date) cm/sec LV V1 max unknown) P.6 mmHg (unknown) (no (unknown) (unknown) Ao max P.4 (units (unknown) date) mmHg LV V1 VTI: unknown) 26.1 cm (unknown) (no (unknown) (unknown) Ao mean P.3 (units (unknown) date) mmHg FREIDA(I,D): 2.8 unknown) cm2 (unknown) (no (unknown) (unknown) Aortic Valve: The (units (unknown) date) aortic valve is not unknown) well visualized. The aortic valve is (unknown) (no (unknown) (unknown) Atria: Both atria (units (unknown) date) are moderately unknown) dilated. There is no Doppler evidence for (unknown) (no (unknown) (unknown) : 1945 (units (unknown) date) Acct:[id number] unknown) (unknown) (no (unknown) (unknown) Doppler (units (unkno wn) date) Measurements + unknown) Calculations (unknown) (no (unknown) (unknown) E/E' lat: 10.7 (units (unknown) date) unknown) (unknown) (no (unknown) (unknown) E/E' med: 14.5 PA (units (unknown) date) mean P.9 mmHg unknown) (unknown) (no (unknown) (unknown) E/e' average: 12.6 (units (unknown) date) unknown) (unknown) (no (unknown) (unknown) Echocardiogram (units (unknown) date) Report unknown) (unknown) (no (unknown) (unknown) Echocardiography (units (unknown) date) Report unknown) (unknown) (no (unknown) (unknown) Electronically (units (unknown) date) signed by: Kasey unknown) Leo Matos on 08/29/2022 (unknown) (no (unknown) (unknown) FS: 26.7 % (units (unk nown) date) unknown) (unknown) (no (unknown) (unknown) Great Vessels: The (units (unknown) date) aortic root is unknown) normal size. The ascending aorta could not (unknown) (no (unknown) (unknown) IVSd: 0.90 cm (units ( unknown) date) unknown) (unknown) (no (unknown) (unknown) Interpretation (units (unknown) date) Summary unknown) (unknown) (no (unknown) (unknown) [facility] (units (unknown) date) unknown) (unknown) (no (unknown) (unknown) [place] (units (unkno wn) date) unknown) (unknown) (no (unknown) (unknown) LA A2 area: 30.2 (units (unknown) date) cm2 RA long axis: unknown) 6.0 cm (unknown) (no (unknown) (unknown) LA A4 area: 28.6 (units (unknown) date) cm2 RA area: 25.4 unknown) cm2 (unknown) (no (unknown) (unknown) LA length (vol): (units (unknown) date) 6.5 cm RA vol: 91.5 unknown) ml (unknown) (no (unknown) (unknown) LA vol index: 43.0 (units (unknown) date) ml/m2 IVC diam: 2.3 unknown) cm (unknown) (no (unknown) (unknown) LA vol: 111.7 ml (units (unknown) date) RA : 35.2 ml/m2 unknown) (unknown) (no (unknown) (unknown) LV germain. (units (unkno wn) date) diameter/BSA unknown) (cm/m2): 2.2 (unknown) (no (unknown) (unknown) LV sys. (units (unkno wn) date) diameter/BSA unknown) (cm/m2): 1.6 (unknown) (no (unknown) (unknown) LVIDd: 5.7 cm LVOT (units (unknown) date) diam: 2.1 cm unknown) (unknown) (no (unknown) (unknown) LVIDs: 4.2 cm Ao (units (unknown) date) root diam: 3.2 cm unknown) (unknown) (no (unknown) (unknown) LVPWd: 1.2 cm (units ( unknown) date) unknown) (unknown) (no (unknown) (unknown) Lat Peak E' Hiral: (units (unknown) date) 7.8 cm/sec PA unknown) pr(Accel): 41.3 mmHg (unknown) (no (unknown) (unknown) Left Ventricle: (units (unknown) date) The left ventricle unknown) is mildly dilated. There is normal left (unknown) (no (unknown) (unknown) Loc: ECHO (units (unkn own) date) unknown) (unknown) (no (unknown) (unknown) MMode/2D (units (o wn) ) Measurements + unknown) Calculations (unknown) (no (unknown) (unknown) MV A max hiral: (units ( unknown) date) 103.9 cm/sec TR max unknown) P.1 mmHg (unknown) (no (unknown) (unknown) MV E max hiral: 82.7 (units (unknown) date) cm/sec TR max hiral: unknown) 300.3 cm/sec (unknown) (no (unknown) (unknown) MV E/A: 0.80 PA V2 (units (unknown) date) max: 89.8 cm/sec unknown) (unknown) (no (unknown) (unknown) MV dec time: 0.29 (units (unknown) date) sec unknown) (unknown) (no (unknown) (unknown) Med Peak E' Hiral: (units (unknown) date) 5.7 cm/sec PA V2 unknown) mean: 66.2 cm/sec (unknown) (no (unknown) (unknown) Mitral Valve: (units ( unknown) date) Calcified mitral unknown) apparatus. The mitral valve leaflets appear (unknown) (no (unknown) (unknown) Ordering Provider: (units (unknown) date) Kasey Matos MD unknown) (unknown) (no (unknown) (unknown) Patient: (units (unkno wn) date) Ivan Pham unknown) MR#: [id number] (unknown) (no (unknown) (unknown) Pericardium/ (units (u nknown) date) Pleura There is an unknown) anterior echo-free space consistent with a (unknown) (no (unknown) (unknown) Procedure: A (units (u nknown) date) two-dimensional unknown) transthoracic echocardiogram with color flow (unknown) (no (unknown) (unknown) Procedure: EC echo (units (unknown) date) doppler complete unknown) (unknown) (no (unknown) (unknown) Pulmonic Valve: (units (unknown) date) The pulmonic valve unknown) is not well visualized. There is no (unknown) (no (unknown) (unknown) Reading (units (o wn) date) Physician:04:46 PM unknown) (unknown) (no (unknown) (unknown) Right Ventricle: (units (unknown) date) The right ventricle unknown) is mildly dilated. The right (unknown) (no (unknown) (unknown) SV(LVOT): 94.6 ml (units (unknown) date) unknown) (unknown) (no (unknown) (unknown) Signed (units (unkno wn) date) unknown) (unknown) (no (unknown) (unknown) TAPSE: 2.2 cm (units ( unknown) date) unknown) (unknown) (no (unknown) (unknown) Tricuspid Valve: (units (unknown) date) The tricuspid valve unknown) is normal. There is mild tricuspid (unknown) (no (unknown) (unknown) (units (unknown) date) unknown) ___ (unknown) (no (unknown) (unknown) an interatrial (units (unknown) date) shunt. unknown) (unknown) (no (unknown) (unknown) and Doppler was (units (unknown) date) performed. The unknown) study quality was technically adequate. There (unknown) (no (unknown) (unknown) based on an (units (un known) date) estimated right unknown) atrial pressure of 8 mm Hg. (unknown) (no (unknown) (unknown) be visualized. The (units (unknown) date) IVC is dilated unknown) (diameter is greater than 2.1 cm) yet it (unknown) (no (unknown) (unknown) collapses greater (units (unknown) date) than 50% with a unknown) sniff. This suggests a right atrial pressure (unknown) (no (unknown) (unknown) ejection fraction (units (unknown) date) is estimated to be unknown) 55-60%. There are no obvious focal wall (unknown) (no (unknown) (unknown) endocardial (units (un known) date) definition reduces unknown) the sensitivity for the detection of such. (unknown) (no (unknown) (unknown) fat pad. There is (units (unknown) date) no pleural unknown) effusion. (unknown) (no (unknown) (unknown) filling pressures. (units (unknown) date) unknown) (unknown) (no (unknown) (unknown) is no prior (units (un known) date) echocardiogram unknown) noted for this patient. The patient was in normal (unknown) (no (unknown) (unknown) is present. (units (un known) date) unknown) (unknown) (no (unknown) (unknown) least 44 mmHg (units ( unknown) date) based on an unknown) estimated right atrial pressure of 8 mm Hg. (unknown) (no (unknown) (unknown) mildly calcified. (units (unknown) date) There is no aortic unknown) valve stenosis. No aortic regurgitation (unknown) (no (unknown) (unknown) mildly thickened, (units (unknown) date) but open well. unknown) There is mild mitral regurgitation. (unknown) (no (unknown) (unknown) motion (units (unkno wn) date) abnormalities noted unknown) but poor endocardial definition reduces the (unknown) (no (unknown) (unknown) of 8 mm Hg. (units (un known) date) unknown) (unknown) (no (unknown) (unknown) pulmonic valvular (units (unknown) date) regurgitation. unknown) (unknown) (no (unknown) (unknown) regurgitation. The (units (unknown) date) right ventricular unknown) systolic pressure is estimated to be at (unknown) (no (unknown) (unknown) relaxation (units (unk nown) date) abnormality of the unknown) left ventricle, consistent with probable normal (unknown) (no (unknown) (unknown) sensitivity for (units (unknown) date) the detection of unknown) such. Diastolic parameters suggest a (unknown) (no (unknown) (unknown) sinus rhythm (units (u nknown) date) during the exam. unknown) The patient had frequent PVCs during the exam. (unknown) (no (unknown) (unknown) ventricular (units (un known) date) systolic function unknown) is normal. (unknown) (no (unknown) (unknown) ventricular wall (units (unknown) date) thickness. Left unknown) ventricular systolic function is normal. The Social History No information. Vital Signs No information.
--- NOTE | 2022-09-10 14:14 | CT Report ---
PROCEDURE: HEAD WO INDICATIONS: Head trauma, mod-severe TECHNIQUE: Noncontrast 4.5 mm thick angled axial sections acquired from the foramen magnum to the vertex. For r adiation dose reduction, the following was used: automated exposure control, adjustment of mA and/or kV according to patient size. COMPARISON: None. FINDINGS: Image quality: Excellent. CSF spaces: Basal cisterns are patent. No extra-axial fluid collections. Ventricles are normal in size and shape. Brain: No midline shift. No intracranial masses or hemorrhage. No area of hypodensity in a vascula r distribution to suggest acute infarction. 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 Age-related parenchymal loss. Skull and face: Calvarium and visualized facial bones are intact, without suspicious lesions. Sinuses: Visualized sinuses and mastoids are clear. IMPRESSION: No acute intracranial abnormality. Chronic microvascular ischemic disease. Reviewed by: Magen Lopez MD on 09/10/2022 2:13 PM PDT Approved by: Magen Lopez MD on 09/10/2022 2:13 PM PDT Station ID: [id number]
--- NOTE | 2022-09-10 14:16 | CT Report ---
PROCEDURE: CERVICAL SPINE WO INDICATIONS: Neck trauma, midline tenderness TECHNIQUE: Noncontrast 3 mm thick sections acquired from the skull base to the T4 level. Sagittal and coronal r eformats were then constructed. For radiation dose reduction, the following was used: automated exp osure control, adjustment of mA and/or kV according to patient size. COMPARISON: None. FINDINGS: Image quality: Excellent. Bones: No fractures or dislocations. Moderate to severe degenerative change in the cervical spine. V isualized superior ribs are intact. Soft tissues: Prevertebral soft tissues are normal in thickness. No paravertebral hematomas. No ap ical pneumothoraces. IMPRESSION: No acute osseous abnormality. Reviewed by: Magen Lopez MD on 09/10/2022 2:15 PM PDT Approved by: Magen Lopez MD on 09/10/2022 2:15 PM PDT Station ID: [id number]
--- NOTE | 2022-09-10 14:24 | CT Report ---
PROCEDURE: CHEST W INDICATIONS: Chest trauma, blunt, high energy CONTRAST: 100ml Omnipaque 300 TECHNIQUE: After the administration of intravenous contrast, 1 mm axial images were acquired from the pulmonary apices through the posterior costophrenic angles. Axial 5 mm soft tissue kernel reconstructions were performed as well as 8 mm axial MIP and coronal and sagittal 5 mm reformations. For radiation dose reduction, the following was used: automated exposure control, adjustment of mA and/or kV according to patient size. COMPARISON: None. FINDINGS: Image quality: Excellent. Lungs and pleura: Miniscule right pleural fluid. No pneumothorax. No suspicious pulmonary nodules wh ich require follow up. Left major fissure pulmonary nodule measuring 0.3 cm, (3220). This could repr esent a small intrapulmonary lymph node. There is mild bronchial wall thickening. Mediastinum: Heart size is normal. No pericardial effusions. No mediastinal adenopathy by size criter ia. No large vessel abnormality. Chest wall and lower neck: Thyroid is unremarkable. No axillary or supraclavicular adenopathy by size . Bones: No aggressive osseous abnormality. Upper Abdomen: Unremarkable. IMPRESSION: No fracture. Trace right pleural fluid. Lungs are otherwise clear. Mild bronchial wall thickening which could be seen in the setting of bronchitis. Reviewed by: Magen Lopez MD on 09/10/2022 2:22 PM PDT Approved by: Magen Lopez MD on 09/10/2022 2:22 PM PDT Station ID: [id number]
--- NOTE | 2022-09-10 14:26 | CT Report ---
PROCEDURE: THORACIC SPINE WO INDICATIONS: Back injury, major trauma TECHNIQUE: Noncontrast 3 mm thick sections acquired through the region of interest in the thoracic spine. Sagit katlin and coronal reformats were then constructed. For radiation dose reduction, the following was used : automated exposure control, adjustment of mA and/or kV according to patient size. COMPARISON: Same-day CT chest. FINDINGS: Image quality: Excellent. Bones: There is normal overall bony alignment. Mild to moderate degenerative change. No acute verte bral body compression fractures. No suspicious sclerotic or lytic bony lesions. Central spinal tommy l is of normal overall caliber. Soft tissues: No paravertebral masses or hematomas. Trace right pleural fluid. Visualized posterome dial lungs appear clear. IMPRESSION: No acute osseous abnormality. Reviewed by: Magen Lopez MD on 09/10/2022 2:25 PM PDT Approved by: Magen Lopez MD on 09/10/2022 2:25 PM PDT Station ID: [id number]
--- NOTE | 2022-09-10 15:00 | CT Report ---
PROCEDURE: ABDOMEN/PELVIS W INDICATIONS: Abdominal trauma, blunt CONTRAST: 100ml Omnipaque 300 TECHNIQUE: After the administration of intravenous contrast, 5 mm thick sections acquired from the diaphragms to the symphysis. 5 mm thick coronal and sagittal reformats were acquired. For radiation dose reducti on, the following was used: automated exposure control, adjustment of mA and/or kV according to rishi ent size. COMPARISON: Same day CT chest, 04/10/2016. FINDINGS: Image quality: Excellent. Lung bases and heart: Three-vessel coronary artery calcifications. Trace right pleural fluid. Liver: No focal lesion. No laceration. Gallbladder and biliary tree: Unremarkable. No biliary dilation. Spleen: No laceration. No perisplenic fluid. Pancreas: No laceration. No peripancreatic fluid. Adrenals: Unremarkable. Kidneys and ureters: No hydronephrosis. Small low-density right renal cysts. Nonobstructing right kid idalmis stone measuring 1.3 cm. Small nonobstructing left kidney stone measuring 0.3 cm. Bowel and peritoneum: No bowel distension. No pathologic free fluid. Normal appendix. Lymph nodes: No central or retroperitoneal adenopathy. Vessels: Circumferential calcified plaque. No aneurysm. PELVIS Reproductive organs: Penile prosthesis with reservoir in the right lower quadrant. Bladder: Unremarkable. Lymph nodes: Unremarkable. Bones: No aggressive osseous abnormality. Bilateral hip arthroplasties. Other: None. IMPRESSION: 1. No acute traumatic injury identified. No free fluid in the abdomen or pelvis. 2. Bilateral kidney stones. Reviewed by: Magen Lopez MD on 09/10/2022 2:59 PM PDT Approved by: Magen Lopez MD on 09/10/2022 2:59 PM PDT Station ID: [id number]
--- NOTE | 2022-09-10 15:04 | CT Report ---
PROCEDURE: LUMBAR SPINE WO INDICATIONS: Back injury, major trauma TECHNIQUE: Noncontrast 3 mm thick sections acquired from the T12 level to the sacrum. Sagittal and coronal refo rmats were constructed. For radiation dose reduction, the following was used: automated exposure co ntrol, adjustment of mA and/or kV according to patient size. COMPARISON: Same day CT abdomen pelvis. FINDINGS: Image quality: Excellent. Bones: There is normal bony alignment. No acute vertebral body compression fractures. Prominent paulina tebral body osteophytes. Partial ankylosis at L5-S1. No suspicious lytic or blastic bony lesions. Ce ntral spinal caliber is of normal overall caliber. No pars defects. Soft tissues: No retroperitoneal masses or hematomas. No kidney stones. Circumferential calcified at herosclerotic plaque. Visualized aorta is normal in caliber. IMPRESSION: No lumbar spine fracture. Reviewed by: Magen Lopez MD on 09/10/2022 3:02 PM PDT Approved by: Magen Lopez MD on 09/10/2022 3:02 PM PDT Station ID: [id number]
[2022-09-10 15:08] VITALS: BP 158/63
[2022-09-10] MEDS ORDERED: KETOROLAC 15 MG/ML VIAL IVP STA (15:12)
[2022-09-10] MEDS ORDERED: iohexoL-300 100 ML VIAL IVP ONE (15:50)
== END 2022-09-10 16:21 | disposition home or self-care (01) ==
LOC: EDUNIT# → ED 12:47
DX: S09.90XA Unspecified injury of head, initial encounter (principal); S20.219A Contusion of unspecified front wall of thorax, initial encounter; W31.89XA Contact with other specified machinery, initial encounter; Y93.H2 Activity, gardening and landscaping; N20.0 Calculus of kidney; I10 Essential (primary) hypertension; E78.5 Hyperlipidemia, unspecified; E11.9 Type 2 diabetes mellitus without complications; E78.00 Pure hypercholesterolemia, unspecified; J44.9 Chronic obstructive pulmonary disease, unspecified; Z79.84 Long term (current) use of oral hypoglycemic drugs; Z79.82 Long term (current) use of aspirin; Z79.899 Other long term (current) drug therapy
CPT/HCPCS: 36415; 70450; 71260; 72125; 72128; 72131; 74177; 80053; 83690; 85025; 85610; 96374; 96375; 96376; 99284; J1170; Q9967

== ENCOUNTER 2022-09-14 09:02 | Outpatient (CLI) | payer MEDICARE, OTHER | END 2022-09-14 23:59 | disposition short-term general hospital (02) | LOC: EMS 09:02 | DX: R07.1 Chest pain on breathing (principal); M54.50 Low back pain, unspecified; M54.6 Pain in thoracic spine | CPT/HCPCS: A0425; A0429 ==

== ENCOUNTER 2022-10-20 04:48 | Outpatient (CLI) | payer MEDICARE, OTHER | END 2022-10-20 17:46 | disposition short-term general hospital (02) | LOC: EMS 04:48 | DX: R10.32 Left lower quadrant pain (principal); N50.812 Left testicular pain; N50.811 Right testicular pain; R11.0 Nausea; R39.89 Other symptoms and signs involving the genitourinary system | CPT/HCPCS: A0425; A0427 ==

== ENCOUNTER 2022-11-08 15:14 | Outpatient (CLI) | payer MEDICARE, OTHER ==
[2022-11-08 18:13] LABS: BASOPHILS # (AUTO) 0.1 10^3/uL (0.0-0.1); BASOPHILS % (AUTO) 0.4 %; EOSINOPHILS # (AUTO) 0.3 10^3/uL (0.0-0.7); EOSINOPHILS % (AUTO) 2.7 %; HCT - HEMATOCRIT 45.8 % (42.0-52.0); HGB - HEMOGLOBIN 15.3 g/dL (14.0-18.0); LYMPHOCYTES # (AUTO) 4.3 10^3/uL (1.5-3.5); LYMPHOCYTES % (AUTO) 35.9 %; MEAN CORPUSCULAR HEMOGLOBIN 31.6 pg (27.0-31.0); MEAN CORPUSCULAR HGB CONC 33.4 g/dL (32.0-36.0); MEAN CORPUSCULAR VOLUME 94.6 fL (80.0-94.0); MEAN PLATELET VOLUME 9.7 fL (7.4-11.4); MONOCYTES # (AUTO) 0.9 10^3/uL (0.0-1.0); MONOCYTES % (AUTO) 7.5 %; NEUTROPHILS # (AUTO) 6.3 10^3/uL (1.5-6.6); NEUTROPHILS % (AUTO) 53.1 %; PLT - PLATELET COUNT 310 10^3/uL (130-450); RED BLOOD COUNT 4.84 10^6/uL (4.70-6.10); RED CELL DISTRIBUTION WIDTH 12.6 % (12.0-15.0); WHITE BLOOD COUNT 11.9 x10^3/uL (4.8-10.8)
[2022-11-08 18:18] LABS: ALBUMIN 4.5 g/dL (3.2-5.5); ALBUMIN/GLOBULIN RATIO 1.2 (1.0-2.2); BILIRUBIN,TOTAL 0.9 mg/dL (0.2-1.0); CALCIUM 9.5 mg/dL (8.5-10.3); POTASSIUM 4.2 mmol/L (3.5-5.0); TOTAL PROTEIN 8.3 g/dL (6.7-8.2)
== END 2022-11-08 15:15 | disposition home or self-care (01) ==
LOC: LAB.N 15:14
PROVIDERS: ATTEND Internal Medicine Rheumatology
DX: M06.4 Inflammatory polyarthropathy (principal)
CPT/HCPCS: 36415; 80053; 85025; 85651

== ENCOUNTER 2022-11-23 10:36 | Outpatient (CLI) | payer MEDICARE, OTHER ==
[2022-11-23 13:01] LABS: BASOPHILS # (AUTO) 0.1 10^3/uL (0.0-0.1); BASOPHILS % (AUTO) 0.5 %; EOSINOPHILS # (AUTO) 0.3 10^3/uL (0.0-0.7); EOSINOPHILS % (AUTO) 2.6 %; HCT - HEMATOCRIT 44.8 % (42.0-52.0); HGB - HEMOGLOBIN 15.2 g/dL (14.0-18.0); LYMPHOCYTES # (AUTO) 3.8 10^3/uL (1.5-3.5); LYMPHOCYTES % (AUTO) 34.7 %; MEAN CORPUSCULAR HEMOGLOBIN 32.2 pg (27.0-31.0); MEAN CORPUSCULAR HGB CONC 33.9 g/dL (32.0-36.0); MEAN CORPUSCULAR VOLUME 94.9 fL (80.0-94.0); MEAN PLATELET VOLUME 9.4 fL (7.4-11.4); MONOCYTES # (AUTO) 0.7 10^3/uL (0.0-1.0); MONOCYTES % (AUTO) 6.7 %; NEUTROPHILS # (AUTO) 5.9 10^3/uL (1.5-6.6); NEUTROPHILS % (AUTO) 54.9 %; PLT - PLATELET COUNT 271 10^3/uL (130-450); RED BLOOD COUNT 4.72 10^6/uL (4.70-6.10); WHITE BLOOD COUNT 10.8 x10^3/uL (4.8-10.8)
[2022-11-23 13:17] LABS: ALBUMIN 4.1 g/dL (3.2-5.5); ALBUMIN/GLOBULIN RATIO 1.1 (1.0-2.2); CALCIUM 9.5 mg/dL (8.5-10.3); CREATININE 0.8 mg/dL (0.6-1.2); POTASSIUM 4.2 mmol/L (3.5-5.0); TOTAL PROTEIN 7.7 g/dL (6.7-8.2)
[2022-11-23 13:29] LABS: ESTIMATED AVERAGE GLUCOSE 128 mg/dL (70-100); HEMOGLOBIN A1c% 6.1 % (4.27-6.07)
== END 2022-11-23 10:37 | disposition home or self-care (01) ==
LOC: LAB.N 10:36
PROVIDERS: ATTEND Family Medicine
DX: E11.42 Type 2 diabetes mellitus with diabetic polyneuropathy (principal)
CPT/HCPCS: 36415; 80053; 83036; 85025

== ENCOUNTER 2023-01-14 11:26 | Outpatient (CLI) | payer MEDICARE, OTHER ==
[2023-01-14 18:43] LABS: BASOPHILS # (AUTO) 0.1 10^3/uL (0.0-0.1); BASOPHILS % (AUTO) 0.5 %; EOSINOPHILS # (AUTO) 0.3 10^3/uL (0.0-0.7); EOSINOPHILS % (AUTO) 2.3 %; HGB - HEMOGLOBIN 15.1 g/dL (14.0-18.0); LYMPHOCYTES # (AUTO) 4.2 10^3/uL (1.5-3.5); LYMPHOCYTES % (AUTO) 39.6 %; MEAN CORPUSCULAR HEMOGLOBIN 31.9 pg (27.0-31.0); MEAN CORPUSCULAR HGB CONC 32.1 g/dL (32.0-36.0); MEAN CORPUSCULAR VOLUME 99.4 fL (80.0-94.0); MEAN PLATELET VOLUME 10.1 fL (7.4-11.4); MONOCYTES # (AUTO) 0.7 10^3/uL (0.0-1.0); MONOCYTES % (AUTO) 6.1 %; NEUTROPHILS # (AUTO) 5.5 10^3/uL (1.5-6.6); PLT - PLATELET COUNT 276 10^3/uL (130-450); RED BLOOD COUNT 4.73 10^6/uL (4.70-6.10); RED CELL DISTRIBUTION WIDTH 14.2 % (12.0-15.0); WHITE BLOOD COUNT 10.7 x10^3/uL (4.8-10.8)
[2023-01-14 18:59] LABS: CALCIUM 9.7 mg/dL (8.5-10.3); CREATININE 0.7 mg/dL (0.6-1.3); POTASSIUM 4.4 mmol/L (3.5-4.5)
== END 2023-01-14 11:27 | disposition home or self-care (01) ==
LOC: LAB.N 11:26
PROVIDERS: ATTEND Internal Medicine Cardiovascular Disease
DX: I50.32 Chronic diastolic (congestive) heart failure (principal); R06.09 Other forms of dyspnea
CPT/HCPCS: 36415; 80048; 83880; 85025

== ENCOUNTER 2023-02-28 15:18 | Outpatient (CLI) | payer MEDICARE, OTHER ==
[2023-02-28 17:46] LABS: BASOPHILS % (AUTO) 0.2 %; EOSINOPHILS # (AUTO) 0.3 10^3/uL (0.0-0.7); EOSINOPHILS % (AUTO) 2.4 %; HCT - HEMATOCRIT 46.5 % (42.0-52.0); LYMPHOCYTES # (AUTO) 3.9 10^3/uL (1.5-3.5); LYMPHOCYTES % (AUTO) 30.1 %; MEAN CORPUSCULAR HEMOGLOBIN 32.6 pg (27.0-31.0); MEAN CORPUSCULAR HGB CONC 32.3 g/dL (32.0-36.0); MEAN CORPUSCULAR VOLUME 101.1 fL (80.0-94.0); MEAN PLATELET VOLUME 10.8 fL (7.4-11.4); MONOCYTES % (AUTO) 7.7 %; NEUTROPHILS # (AUTO) 7.6 10^3/uL (1.5-6.6); NEUTROPHILS % (AUTO) 59.1 %; PLT - PLATELET COUNT 275 10^3/uL (130-450); RED CELL DISTRIBUTION WIDTH 13.4 % (12.0-15.0); WHITE BLOOD COUNT 12.9 x10^3/uL (4.8-10.8)
[2023-02-28 18:11] LABS: ALBUMIN 4.6 g/dL (3.2-5.5); ALBUMIN/GLOBULIN RATIO 1.5 (1.0-2.2); BILIRUBIN,TOTAL 0.8 mg/dL (0.2-1.0); CALCIUM 9.9 mg/dL (8.5-10.3); CREATININE 0.9 mg/dL (0.6-1.3); POTASSIUM 4.7 mmol/L (3.5-4.5); TOTAL PROTEIN 7.6 g/dL (6.4-8.9)
== END 2023-02-28 15:19 | disposition home or self-care (01) ==
LOC: LAB.N 15:18
PROVIDERS: ATTEND Internal Medicine Rheumatology
DX: M05.79 Rheumatoid arthritis with rheumatoid factor of multiple sites without organ or systems involvement (principal)
CPT/HCPCS: 36415; 80053; 85025; 85651

== ENCOUNTER 2023-05-14 11:54 | Outpatient (CLI) | payer MEDICARE, OTHER ==
[2023-05-14 17:43] LABS: BASOPHILS # (AUTO) 0.1 10^3/uL (0.0-0.1); BASOPHILS % (AUTO) 0.6 %; EOSINOPHILS # (AUTO) 0.2 10^3/uL (0.0-0.7); EOSINOPHILS % (AUTO) 1.5 %; HCT - HEMATOCRIT 46.7 % (42.0-52.0); HGB - HEMOGLOBIN 15.2 g/dL (14.0-18.0); LYMPHOCYTES # (AUTO) 4.6 10^3/uL (1.5-3.5); LYMPHOCYTES % (AUTO) 37.7 %; MEAN CORPUSCULAR HEMOGLOBIN 32.8 pg (27.0-31.0); MEAN CORPUSCULAR HGB CONC 32.5 g/dL (32.0-36.0); MEAN CORPUSCULAR VOLUME 100.9 fL (80.0-94.0); MEAN PLATELET VOLUME 10.6 fL (7.4-11.4); MONOCYTES # (AUTO) 0.9 10^3/uL (0.0-1.0); MONOCYTES % (AUTO) 7.1 %; NEUTROPHILS # (AUTO) 6.4 10^3/uL (1.5-6.6); NEUTROPHILS % (AUTO) 52.8 %; PLT - PLATELET COUNT 245 10^3/uL (130-450); RED BLOOD COUNT 4.63 10^6/uL (4.70-6.10); RED CELL DISTRIBUTION WIDTH 13.2 % (12.0-15.0); WHITE BLOOD COUNT 12.1 x10^3/uL (4.8-10.8)
[2023-05-14 17:55] LABS: ALBUMIN 4.4 g/dL (3.2-5.5); ALBUMIN/GLOBULIN RATIO 1.5 (1.0-2.2); CALCIUM 9.5 mg/dL (8.5-10.3); CREATININE 0.8 mg/dL (0.6-1.3); POTASSIUM 4.3 mmol/L (3.5-4.5); TOTAL PROTEIN 7.4 g/dL (6.4-8.9)
[2023-05-14 21:50] LABS: ESTIMATED AVERAGE GLUCOSE 143 mg/dL (70-100); HEMOGLOBIN A1c% 6.6 % (4.27-6.07)
== END 2023-05-14 11:55 | disposition home or self-care (01) ==
LOC: LAB.N 11:54
PROVIDERS: ATTEND Internal Medicine Rheumatology
DX: E11.9 Type 2 diabetes mellitus without complications (principal); M06.9 Rheumatoid arthritis, unspecified
CPT/HCPCS: 36415; 80053; 82043; 82570; 83036; 85025; 85651

== ENCOUNTER 2023-12-04 13:30 | Outpatient (CLI) | payer MEDICARE, OTHER ==
--- NOTE | 2023-12-04 14:35 | Sleep Patient Instructions ---
Sleep Center Visit Summary - Patient Visit Information Reason for Visit: Initial consultation - Patient Instructions Additional Instructions: You will continue with PAP therapy with pressure as set. A supply prescription will be updated with your DME. We encourage you to continue to try to lose weight. Please follow up with the sleep care office in 1 year. - Clinic Information Contact: [facility] [address] [place] [id number] [email or web address] T: [phone]
--- NOTE | 2023-12-04 14:46 | SLEEP CARE CONSULTATION ---
Information from patient questionnaire entered by Zoraida Mata. I have reviewed and concur with the information entered by Zoraida Mata. This document represents the service I personally performed and the decisions made by me, Sagrario Reid ARNP. History of Present Illness Service Date and Time: 12/04/2023 1330 Reason for Visit: New patient, Previously diagnosed sleep apnea, sleep apnea on CPAP therapy Chief Complaint: reports: Insomnia, Excessive daytime sleepiness, Observed pauses in breathing, Fatigue, Other (UPDAT SUPPLIES) Date of Onset: 20YRS Usual bedtime: 9024-2217 Time it takes to fall asleep: 3HRS WITHOUT MASK 30MINS WITH Observed to quit breathing while asleep: No Reasons for waking at night: reports: Pain Toss, Turn, or Twitch while sleeping: No Recalls having dreams: Yes Usually gets out of bed at: 5082-7142 Feels refreshed in the morning: No Morning headache: No Sleepy or fatigued during the day: Yes Ever fallen asleep while driving: No Takes day naps: Yes Dreams during day naps: No Prior sleep studies: Yes [facility] and [facility] Additional HPI information: IVAN FALL was previously diagnosed in 12/2006 to have severe, AHI unknown, obstructive sleep apnea-hypopnea syndrome as documented [facility] [place] dated 12/05/17 and comes in today to establish care for CPAP therapy. - Parasomnia Symptoms Ever been unable to move upon waking from sleep: No Walks in sleep: No Ever felt weak in the knees when startled or emotional: No Bothered by creepy, crawly, restless sensations in legs: No Problems with memory or concentration: No CPAP Compliance Data Compliance data discussion: He has a Resmed machine. He gets his supplies from [employer]. He uses a full face mask. He has not been using his CPAP consistently since August of last year after he crushed 2 vertebrae in his back and went a care facility. He is sleeping with his head elevated and only uses the CPAP when his asthma flares up. Subjective Missed days of use due to: reports: other (only uses machine when neede; last used a month ago for a week) Patient concerns: denies: aerophagia, mask discomfort, air blowing in eyes, mask leak noise, condensation in mask/hose, nasal congestion, dry mouth, nose, throat, epistaxis Observed to snore while using device: No Current pressure setting perceived as: comfortable On therapy, patient: reports: sleeping better, more rested overall. 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 Patient is / and lives in [place]. Have you smoked in the past 12 months: No Alcohol use: No Caffeine use: Yes Caffeine amount and frequency: 1 CUP COFFEE Family History Family history of sleep disordered breathing: No Allergies and Home Medications Known drug allergies: No Drug allergies reviewed: Yes Home medication list reviewed: Yes (as listed in EMR) Allergy and home medication list: Allergies No Known Drug Allergies Allergy (Verified 12/02/23 11:23) Home Medications Medication Instructions Recorded Confirmed Last Taken Type Atorvastatin Calcium 20 mg PO QPM 02/06/13 12/04/23 05/02/16 History Metformin HCl 500 mg PO BID 02/06/13 12/04/23 05/03/16 History Methotrexate [Methotrexate Sodium] 10 mg PO FR 11/24/15 12/04/23 05/02/16 History Folic Acid 1 mg PO DAILY 04/10/16 12/04/23 05/03/16 History Montelukast Sodium 4 mg PO DAILY PM 10/18/17 12/04/23 Unknown History Aspirin [Aspirin EC] 81 mg PO DAILY 02/07/18 12/04/23 Unknown History Multivitamin [Multiple Vitamins] 1 tab PO DAILY 01/22/19 12/04/23 Unknown History Furosemide [Lasix] 40 mg PO DAILY 09/10/22 12/04/23 Unknown History Metoprolol Succinate [Toprol Xl] 50 mg PO DAILY 09/10/22 12/04/23 Unknown History Spironolactone [Aldactone] 12.5 mg PO DAILY 09/10/22 12/04/23 Unknown History amLODIPine [Norvasc] 10 mg PO DAILY 09/10/22 12/04/23 Unknown History glipiZIDE [Glipizide ER] 2.5 mg PO DAILY 09/10/22 12/04/23 Unknown History inFLIXimab [Remicade] 1 infus.set IV ONCE 09/10/22 12/04/23 Unknown History oxyCODONE ER [OxyCONTIN] 40 mg PO BID 10/19/22 12/04/23 Unknown History Review of Systems Cardiovascular: reports: high blood pressure, irregular heart rate or pulse, have to sleep sitting up Respiratory: reports: shortness of breath, wheeze, sputum production Ear/Nose/Throat: reports: dry mouth/throat, wisdom teeth removed Musculoskeletal: reports: joint pain, back pain, mobility problems Physical Exam Vital signs obtained and entered by: ZORAIDA Lester MA Blood Pressure: 153/64 Cuff size: long Heart Rate: 38 O2 Saturation: 94 Height: 6 ft 3 in Weight: 302 lb Body Mass Index: 37.7 BMI Classification: Obese Neck circumference: 19.5 Heart: irregular rhythm Lungs: clear bilaterally Impression and Plan 1. Obstructive Sleep Apnea-Hypopnea Syndrome, severe, with unknown treatment compliance and unknown apnea control. Ivan has not been consistently using his PAP machine since August when he crushed two vertebrae and went to a care facility for healing care. He did not have access to his PAP machine and they had him sleeping with his head elevated. He said he is sleeping well and only needs his PAP machine when he had a respiratory illness or his asthma is acting up. He only came in to establish care because his DME supplier, [employer], called and told him that he was eligible for a new machine. He is not compliant using his device for over a year. I was unable to obtain a copy of last sleep study done in 2006. I explained that we would need another sleep study to re-qualify him for the PAP machine. He declined having another study and does not want to pursue a new device at this time. I will update his supply prescription. I asked him to bring in his PAP machine or SD card so we can get the data and his pressure settings. He said he would bring it by the office when he next came to town. He was encouraged to use his PAP device more often since his THIAGO was documented to be severe. He voiced understanding. Patient's apnea severity and rationale for treatment to reduce apnea, improve sleep quality and reduce cardiovascular and cerebrovascular events was reviewed. I also reviewed the benefit of consistent device use of CPAP for hypertension, arrhythmia, diabetes. 2. Obesity, unspecified. Currently patients BMI is 37.7. Obesity increases the risk of apnea, CPAP pressure requirements and overall health risks especially cardiovascular and diabetes. Thus patient is advised to lose weight. * Continue PAP therapy at current pressure which is unknown * Patient asked to bring in SD card or PAP machine to obtain data. * Update supply prescription * Notify me if snoring with mask or feeling that the pressure is too much or too little * Attempt to lose weight * Call this office if any problems using CPAP * Return for follow up in 12 months, or sooner if concerns arise Counseling Topics: Spare mask, Weight loss health impact Prescriptions: Device supplies Follow up with Sleep Care in: 1 year Visit Type: In Office Time Spent with Patient (minutes): 39 Provider Statement: I spent 100% of the Face to Face Visit with the patient with greater than 50% spent counseling the patient and coordination of care.
[2023-12-04 15:04] VITALS: BP 153/64; O2SAT 94
== END 2023-12-04 13:31 | disposition home or self-care (01) ==
LOC: SC 13:30
PROVIDERS: ATTEND Nurse Practitioner Family
DX: G47.33 Obstructive sleep apnea (adult) (pediatric) (principal); E66.9 Obesity, unspecified; Z68.37 Body mass index [BMI] 37.0-37.9, adult
CPT/HCPCS: 99203; G0463; 99212

== ENCOUNTER 2024-01-23 15:26 | Outpatient (CLI) | payer MEDICARE, OTHER ==
[2024-01-23 18:34] LABS: BASOPHILS % (AUTO) 0.4 %; EOSINOPHILS % (AUTO) 2.2 %; HCT - HEMATOCRIT 46.3 % (42.0-52.0); HGB - HEMOGLOBIN 15.2 g/dL (14.0-18.0); LYMPHOCYTES % (AUTO) 37.2 %; MEAN CORPUSCULAR HGB CONC 32.8 g/dL (32.0-36.0); MEAN CORPUSCULAR VOLUME 97.5 fL (80.0-94.0); MEAN PLATELET VOLUME 10.1 fL (7.4-11.4); MONOCYTES % (AUTO) 7.7 %; NEUTROPHILS % (AUTO) 52.1 %; PLT - PLATELET COUNT 298 10^3/uL (130-450); RED BLOOD COUNT 4.75 10^6/uL (4.70-6.10); RED CELL DISTRIBUTION WIDTH 13.2 % (12.0-15.0); WHITE BLOOD COUNT 13.9 x10^3/uL (4.8-10.8)
[2024-01-23 18:38] LABS: BAND NEUTROPHILS % (MANUAL) 0 %
[2024-01-23 19:12] LABS: ABNORMAL LYMPHS % (MANUAL) 9 %; DIFFERENTIAL COMMENT MANUAL DIFFERENTIAL; EOSINOPHILS # (MANUAL) 0.4 10^3/uL (0-0.7); LYMPHOCYTES # (MANUAL) 4.6 10^3/uL (1.5-3.5); LYMPHOCYTES % (MANUAL) 24 %; MONOCYTES # (MANUAL) 0.7 10^3/uL (0.0-1.0); NEUTROPHILS # (MANUAL) 8.2 10^3/uL (1.5-6.6); PLATELET ESTIMATE, MANUAL NORMAL (130-450,000) (NORMAL); PLATELET MORPHOLOGY NORMAL APPEARANCE (NORMAL); RBC MORPHOLOGY (MULTIPLE) NORMAL APPEARANCE (NORMAL)
[2024-01-23 19:21] LABS: ALBUMIN/GLOBULIN RATIO 1.2 (1.0-2.2); ALKALINE PHOSPHATASE 50 IU/L (42-121); ALT ALANINE AMINOTRANSFERASE 30 IU/L (10-60); AST ASPARTATE AMINOTRANSFERASE 39 IU/L (10-42); BILIRUBIN,TOTAL 0.6 mg/dL (0.2-1.0); BUN - BLOOD UREA NITROGEN 14 mg/dL (6-20); CALCIUM 9.6 mg/dL (8.5-10.3); CARBON DIOXIDE - CO2 30 mmol/L (21-32); CHLORIDE 101 mmol/L (101-111); CHOL/HDL RATIO 2.6 (<5.0); CHOLESTEROL 98 mg/dL; CREATININE 0.9 mg/dL (0.6-1.3); GFR - MDRD 81 (>89); GLUCOSE 83 mg/dL (74-104); HDL CHOLESTEROL 37 mg/dL; LDL CHOLESTEROL,CALCULATED 30 mg/dL; LDL/HDL RATIO 0.8 (<3.6); POTASSIUM 4.5 mmol/L (3.5-4.5); SODIUM 139 mmol/L (135-145); TOTAL PROTEIN 7.4 g/dL (6.4-8.9); TRIGLYCERIDES 154 mg/dL; VLDL CHOLESTEROL 31 mg/dL
[2024-01-23 19:36] LABS: THYROID STIMULATING HORMONE 5.25 uIU/mL (0.34-5.60)
[2024-01-23 23:21] LABS: ESTIMATED AVERAGE GLUCOSE 146 mg/dL (70-100); HEMOGLOBIN A1c% 6.7 % (4.27-6.07)
== END 2024-01-23 15:27 | disposition home or self-care (01) ==
LOC: LAB.N 15:26
PROVIDERS: ATTEND Family Medicine
DX: M48.04 Spinal stenosis, thoracic region (principal); M48.54XS Collapsed vertebra, not elsewhere classified, thoracic region, sequela of fracture; M62.830 Muscle spasm of back; M06.9 Rheumatoid arthritis, unspecified; E11.9 Type 2 diabetes mellitus without complications; G89.29 Other chronic pain; N20.0 Calculus of kidney; E66.9 Obesity, unspecified; I27.81 Cor pulmonale (chronic); Z12.5 Encounter for screening for malignant neoplasm of prostate
CPT/HCPCS: 36415; 80053; 80061; 83036; 84443; 85025; G0103; 83721; 84153

== ENCOUNTER 2024-08-04 16:08 | Observation (INO) ==
--- NOTE | 2024-08-04 17:01 | XRAY Report ---
PROCEDURE: XR Chest 2V INDICATIONS: SOA/cough TECHNIQUE: 2 views of the chest were acquired. COMPARISON: 07/16/2024 FINDINGS: Rotated patient. Surgical changes and devices: None. Lungs and pleura: Thickening of the interstitial markings bilaterally, predominantly in the infrahil ar regions. Further blunting of both costophrenic sulci laterally and small bilateral pleural effusio ns. No dense consolidations or pneumothorax. Mediastinum: Mild cardiomegaly and slight prominence of central venous structures. Stable aortic con tour. Bones and chest wall: No suspicious bony lesions. Overlying soft tissues appear unremarkable. IMPRESSION: Bilateral small pleural effusions and bibasilar interstitial thickening suggesting edema although und erlying infection may be present. Correlate with BNP. Reviewed by: Lenore Martin MD on 08/04/2024 4:59 PM PDT Approved by: Lenore Martin MD on 08/04/2024 4:59 PM PDT Station ID: [id number]
[2024-08-04 17:19] LABS: BASOPHILS % (AUTO) 0.1 %; EOSINOPHILS # (AUTO) 0.2 10^3/uL (0.0-0.7); HCT - HEMATOCRIT 44.2 % (42.0-52.0); LYMPHOCYTES # (AUTO) 1.8 10^3/uL (1.5-3.5); LYMPHOCYTES % (AUTO) 23.1 %; MEAN CORPUSCULAR HEMOGLOBIN 32.1 pg (27.0-31.0); MEAN CORPUSCULAR HGB CONC 31.7 g/dL (32.0-36.0); MEAN CORPUSCULAR VOLUME 101.4 fL (80.0-94.0); MONOCYTES # (AUTO) 0.8 10^3/uL (0.0-1.0); MONOCYTES % (AUTO) 10.5 %; NEUTROPHILS # (AUTO) 4.8 10^3/uL (1.5-6.6); NEUTROPHILS % (AUTO) 62.9 %; PLT - PLATELET COUNT 176 10^3/uL (130-450); RED BLOOD COUNT 4.36 10^6/uL (4.70-6.10); RED CELL DISTRIBUTION WIDTH 14.6 % (12.0-15.0); WHITE BLOOD COUNT 7.6 x10^3/uL (4.8-10.8)
[2024-08-04 17:32] LABS: ALBUMIN 3.8 g/dL (3.2-5.5); ALBUMIN/GLOBULIN RATIO 1.3 (1.0-2.2); BILIRUBIN,TOTAL 1.2 mg/dL (0.2-1.0); CALCIUM 9.1 mg/dL (8.5-10.3); POTASSIUM 4.5 mmol/L (3.5-4.5); TOTAL PROTEIN 6.7 g/dL (6.4-8.9)
[2024-08-04] MEDS ORDERED: iohexoL-300 100 ML VIAL ONE (19:18)
--- NOTE | 2024-08-04 19:52 | ED Physician Documentation ---
History of Present Illness Stated complaint Stated Complaint: SOA Chief complaint Chief Complaint: Resp Additonal information Additional information: 79-year-old male with past medical history COPD not on home oxygen, obstructive sleep apnea, coronary artery disease, type 2 diabetes with peripheral neuropathy, chronic cor pulmonale, hypertension who 10 days ago was diagnosed with pneumonia after presenting with blood-tinged, he has been coughing up thick white no fevers, reports some chills today while in the ER. No swelling in his legs. Has been using his inhalers at home without relief. Review of Systems Status of ROS: 10 or more systems reviewed and unremarkable except as noted in history and below Meds/Allgy Home Medications Ambulatory Orders Medication Instructions Recorded Confirmed metformin 500 mg tablet 500 mg PO BID 02/06/13 07/23/24 methotrexate sodium 2.5 mg tablet 10 mg PO FR 11/24/15 07/23/24 folic acid 1 mg tablet 1 mg PO DAILY 04/10/16 07/23/24 aspirin 81 mg tablet,delayed 81 mg PO DAILY 02/07/18 07/23/24 release multivitamin (Multiple Vitamins 1 tab PO DAILY 01/22/19 07/23/24 tablet) glipizide 2.5 mg tablet, extended 2.5 mg PO DAILY 09/10/22 07/23/24 release 24 hr infliximab 100 mg intravenous 1 infus.set IV ONCE 09/10/22 07/23/24 solution spironolactone 25 mg tablet 12.5 mg PO DAILY 09/10/22 07/23/24 (Aldactone) amlodipine 10 mg tablet 10 mg PO QDAY 03/02/24 07/23/24 latanoprost 0.005 % eye drops 1 drp ophthalmic (eye) QDAY 03/02/24 07/23/24 levalbuterol HCl 1.25 mg/3 mL 1.25 mg inhalation Q4H 03/02/24 07/23/24 solution for nebulization atorvastatin 20 mg tablet See Rx Instructions .Route 05/12/24 07/23/24 .COMPLEX #90 tabs metoprolol succinate 50 mg 50 mg PO QDAY 06/03/24 07/23/24 tablet,extended release 24 hr prednisone 10 mg tablet 10 mg PO DIRECTED #33 tabs 07/14/24 07/23/24 fentanyl 12 mcg/hr transdermal 1 patch transdermal Q72H #10 07/22/24 07/23/24 patch patches fentanyl 50 mcg/hr transdermal 1 patch transdermal Q72H #10 07/22/24 07/23/24 patch patches baclofen 10 mg tablet See Rx Instructions .Route 07/25/24 07/25/24 .COMPLEX #90 tabs furosemide 40 mg tablet 40 mg PO DAILY #90 tabs 07/25/24 07/25/24 gabapentin 300 mg capsule 300 mg PO TID #270 caps 07/25/24 07/25/24 montelukast 4 mg chewable tablet 4 mg PO DAILY PM #90 tabs 07/25/24 07/25/24 hydrocodone 5 mg-acetaminophen 325 1 tab PO BID PRN pain #60 tabs 07/30/24 mg tablet Allergies Allergies Allergy/AdvReac Type Severity Reaction Status Date / Time ciprofloxacin Allergy Intermediate Jerking Verified 08/04/24 16:19 Movements PFSH Active Problems All Active Problems (Updated 08/04/24 @ 22:15 by Meera Lainez MD) Acute hypoxic respiratory failure (Acute) Acute exacerbation of chronic obstructive pulmonary disease (Acute) Pneumonia (Acute) Narcotic drug use (Acute) Pneumonia (Acute) Hemoptysis (Acute) COPD (chronic obstructive pulmonary disease) with acute bronchitis (Acute) Acquired polycythemia (Acute) Essential (primary) hypertension (Acute) Atherosclerotic heart disease of [place] coronary artery without angina pectoris (Acute) Sleep disorder, unspecified (Acute) Cor pulmonale (chronic) (Acute) Obesity, unspecified (Acute) Unspecified hydronephrosis (Acute) Type 2 diabetes mellitus without complications (Acute) Mild obstructive sleep apnea in adult (Acute) COPD (chronic obstructive pulmonary disease) (Chronic) Chronic pain (Acute) Collapsed vertebra, not elsewhere classified, thoracic region, sequela of fracture (Acute) Rheumatoid arthritis (Acute) Dyspnea (Acute) Medical History Medical History (Updated 08/04/24 @ 22:15 by Meera Lainez MD) CAP (community acquired pneumonia) COPD exacerbation Major depressive disorder, single episode, unspecified Spondylosis without myelopathy or radiculopathy, lumbosacral region Acute pulmonary embolism Pulmonary hypertension, unspecified Bradycardia, unspecified Panic disorder [episodic paroxysmal anxiety] COVID-19 Family History Family History (Updated 07/22/24 @ 14:56 by Jordyn Angel LPN) Father Afib Diabetes Mother Diabetes Social History Social History (Updated 08/04/24 @ 16:24 by Asif Belle RN) Smoking Status: Former smoker If you are a former smoker, when did you quit? (Date/Year): 1984 Number of Years Smoked: 35 How many cigarettes a day do you smoke? 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 Known occupational exposures/hazards (Current/Previous): None known Service: Yes Dates of Service: [id number] Are you following a diet prescribed by a doctor: No Are you following a special diet: No POLST Patient has POLST: No Exam Exam Pleasant 79-year-old male sitting at the side of the bed, increased work of breathing Constitutional normal general appearance HENMT normocephalic Eyes PERRL Neck/C-Spine visual inspection normal Chest inspection of chest normal Respiratory Increased work of breathing but speaking in full sentences, expiratory wheezing worse in the right lower lung field Cardiovascular regular rhythm noted and no edema Bradycardic in the 50s, No lower extremity edema Gastrointestinal abdomen normal to inspection Genitourinary no CVA tenderness Back/Pelvis spine normal to inspection Extremities normal to inspection 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 Psychiatry mental status grossly normal Skin skin color normal Results Vitals Vitals: Vital Signs - 24 hr 08/04/24 16:19 08/04/24 19:47 08/04/24 20:00 Temperature 36.8 C Temperature Source Oral Pulse Rate 56 L 63 77 Respiratory Rate 20 24 24 Blood Pressure 151/54 H 138/59 H 138/59 H O2 Saturation 91 L 86 L 87 L O2 Source Room air Room air Room air If not protocol: Oxygen Flow, liters/minute Pain Intensity 5 08/04/24 20:19 08/04/24 20:29 08/04/24 20:30 Temperature Temperature Source Pulse Rate 62 65 62 Respiratory Rate 24 18 20 Blood Pressure 135/85 H O2 Saturation 93 98 O2 Source Nasal cannula If not protocol: Oxygen Flow, liters/minute 2 Pain Intensity 08/04/24 20:45 08/04/24 20:50 08/04/24 21:00 Temperature Temperature Source Pulse Rate 62 64 67 Respiratory Rate 24 22 22 Blood Pressure 142/53 H O2 Saturation 88 L 92 93 O2 Source Room air Nasal cannula Nasal cannula If not protocol: Oxygen Flow, liters/minute 2 2 Pain Intensity 0 Oxygen O2 Source Nasal cannula Labs Labs: Laboratory Tests 08/04/24 17:14 WBC 7.6 RBC 4.36 L Hgb 14.0 Hct 44.2 MCV 101.4 H MCH 32.1 H MCHC 31.7 L RDW 14.6 Plt Count 176 MPV 10.0 Neut # (Auto) 4.8 Lymph # (Auto) 1.8 [place] # (Auto) 0.8 Eos # (Auto) 0.2 Baso # (Auto) 0.0 Absolute Nucleated RBC 0.00 Nucleated RBC % 0.0 Sodium 137 Potassium 4.5 Chloride 100 L Carbon Dioxide 32 Anion Gap 5.0 L BUN 14 Creatinine 1.0 Estimated GFR (MDRD) 72 L Glucose 116 H Calcium 9.1 Total Bilirubin 1.2 H AST 17 ALT 13 Alkaline Phosphatase 48 Troponin I High Sens 16.7 B-Natriuretic Peptide 244 H Total Protein 6.7 Albumin 3.8 Globulin 2.9 Albumin/Globulin Ratio 1.3 Rads (name of study) CXR: Relevant Findings:: Final report received Interpretation: IMPRESSION: Bilateral small pleural effusions and bibasilar interstitial thickening suggesting edema although underlying infection may be present. Correlate with BNP CTPA: Relevant Findings:: Final report received Interpretation: IMPRESSION: No pulmonary embolus. Multiple focal consolidations at the bilateral lower lungs consistent with pneumonia. Mildly dilated main pulmonary artery measuring up to 3.5 cm in caliber, which can be seen in the setting of pulmonary hypertension. Severe coronary artery calcifications. PD Medical Decision Making ED course Complexity details: reviewed old records, reviewed results, re-evaluated patient, considered differential and d/w patient ED course: Differential diagnosis include COPD, viral URI, pneumonia, congestive heart failure, PE, pulmonary hypertension, anemia, considered but have low suspicion for ACS Patient has wheezing on exam, DuoNeb and steroids ordered, EKG, labs were ordered. His prior chest x-ray was not significant, CT however showed multifocal pneumonia, will repeat CT at this time Although patient's labs are reassuring here, mildly elevated BNP improved from prior, does not appear significantly overloaded, was given a breathing treatment, steroids, oxygenation dropped as low as 86% placed on 2 L nasal cannula, his CT continues to show a lower lobe pneumonia. Patient previously treated with Augmentin, given IV ceftriaxone and azithromycin here, prior to antibiotics blood cultures and lactic acid were obtained although he does not appear septic. Viral swab was also obtained. Overnight telehospitalist paged for admission for pneumonia with acute on chronic worsening of his COPD here with hypoxic respiratory failure requiring 2 L nasal cannula. Discharge Plan Discharge Patient Disposition: 66 [facility] DC/Xfer Condition: Stable Clinical Impression: Acute exacerbation of chronic obstructive pulmonary disease, Acute hypoxic respiratory failure Pneumonia Qualifiers: Pneumonia type: due to unspecified organism Laterality: bilateral Lung location: lower lobe of lung Qualified Code(s): J18.9 - Pneumonia, unspecified organism Prescriptions: No Action atorvastatin 20 mg tablet See Rx Instructions .ROUTE .COMPLEX Qty: 90 3RF Dose Instruction: TAKE 1 TABLET DAILY AT EVENING MEAL Rx Instructions: TAKE 1 TABLET DAILY AT EVENING MEAL hydrocodone-acetaminophen 5-325 mg tablet 1 tab PO BID PRN (Reason: pain) Qty: 60 0RF metformin 500 MG tablet 500 mg PO BID methotrexate sodium 2.5 MG tablet 10 mg PO FR folic acid 1 MG tablet 1 mg PO DAILY Patient Comments: every day except Saturday aspirin 81 MG tablet,delayed release (DR/EC) 81 mg PO DAILY multivitamin [Multiple Vitamins] 1 EACH tablet 1 tab PO DAILY glipizide 2.5 MG tablet extended release 24hr 2.5 mg PO DAILY infliximab 100 MG recon soln 1 infus.set IV ONCE Patient Comments: Infuse 1 vial intravenously as directed every six weeks Rx Instructions: every 6 weeks spironolactone [Aldactone] 25 MG tablet 12.5 mg PO DAILY prednisone 10 mg tablet 10 mg PO DIRECTED Qty: 33 0RF Rx Instructions: Start tomorrow morning, take these tablets every morning for the next 2 weeks (4 tablets for 3 days, 3 tablets for 3 days, 2 tablets for 4 days, 1 tablet for 4 days, stop) fentanyl 50 mcg/hr patch 72 hour 1 patch transdermal Q72H Qty: 10 0RF fentanyl 12 mcg/hr patch 72 hour 1 patch transdermal Q72H Qty: 10 0RF metoprolol succinate 50 mg tablet extended release 24 hr 50 mg PO QDAY Patient Comments: TAKE 1 TABLET BY MOUTH ONCE DAILY amlodipine 10 mg tablet 10 mg PO QDAY Patient Comments: TAKE 1 TABLET BY MOUTH ONCE DAILY levalbuterol HCl 1.25 mg/3 mL solution for nebulization 1.25 mg inhalation Q4H latanoprost 0.005 % drops 1 drp ophthalmic (eye) QDAY Patient Comments: INSTILL 1 DROP INTO EACH EYE ONCE DAILY AT BEDTIME montelukast 4 mg tablet,chewable 4 mg PO DAILY PM Qty: 90 1RF gabapentin 300 mg capsule 300 mg PO TID Qty: 270 3RF furosemide 40 mg tablet 40 mg PO DAILY Qty: 90 3RF baclofen 10 mg tablet See Rx Instructions .ROUTE .COMPLEX Qty: 90 3RF Dose Instruction: TAKE 1 TABLET BY MOUTH THREE TIMES DAILY Rx Instructions: TAKE 1 TABLET BY MOUTH THREE TIMES DAILY Print Language: Greek Stand Alone Forms: PCP List
[2024-08-04] MEDS: iohexoL-300 100 ML VIAL IVP ONE (20:17)
[2024-08-04] MEDS: methylPREDNISolone SUCCINATE 125 MG/2 ML VIAL IVP STA (20:19)
[2024-08-04] MEDS: IPRATROPIUM/ALBUTEROL 3 ML NEB INH STA (20:25)
--- NOTE | 2024-08-04 22:01 | CT Report ---
PROCEDURE: CT Angio Chest INDICATIONS: SOB CONTRAST: 80 ML OMNI TECHNIQUE: After the administration of intravenous contrast, 2 mm axial images were acquired from the pulmonary apices to the posterior costophrenic angles during the arterial phase. In addition, 1 mm lung kernel and 5 mm soft tissue kernel reconstructions were performed. 3-dimensional coronal oblique maximum int ensity projection (MIP) reformats, 8 mm axial MIP, and 5 mm coronal and sagittal MPR reformats were t hen performed through the thorax. For radiation dose reduction, the following was used: automated exp osure control, adjustment of mA and/or kV according to patient size. COMPARISON: CT chest angiograph 07/16/2024, CT chest 09/10/2022. FINDINGS: Image quality: Diagnostic. Large vessels: No filling defects within the opacified pulmonary arteries, accounting for motion and contrast timing. No evidence of acute aortic syndrome or aortic aneurysm. Lungs and pleura: Multifocal consolidations in the bilateral lower lungs No pleural effusions. No pn eumothorax. No suspicious pulmonary nodules which require follow up. Mediastinum: Heart size is normal. No pericardial effusion. Mildly dilated main pulmonary artery kareen uring 3.5 cm in caliber. No mediastinal adenopathy by size criteria. Triple vessel coronary artery c alcifications. Chest wall and lower neck: Thyroid is unremarkable. No axillary or supraclavicular adenopathy by size . Bones: No aggressive osseous abnormality. Chronic L1 compression deformity. Upper Abdomen: Unremarkable. IMPRESSION: No pulmonary embolus. Multiple focal consolidations at the bilateral lower lungs consistent with pneumonia. Mildly dilated main pulmonary artery measuring up to 3.5 cm in caliber, which can be seen in the sett ing of pulmonary hypertension. Severe coronary artery calcifications. Reviewed by: Jacey Cedillo MD, PhD on 08/04/2024 9:59 PM PDT Approved by: Jacey Cedillo MD, PhD on 08/04/2024 9:59 PM PDT Station ID: [id number]
[2024-08-04] MEDS ORDERED: cefTRIAXone 2 GM VIAL ONE (22:22)
[2024-08-04] MEDS: cefTRIAXone 2 GM in SODIUM CHLORIDE 0.9% MINIBAG 100 ML IV STA (22:26)
[2024-08-04] MEDS: AZITHROMYCIN INJ 500 MG in SODIUM CHLORIDE 0.9% 250 ML IV STA (23:07)
--- NOTE | 2024-08-04 23:10 | HISTORY & PHYSICAL EXAMINATION ---
Chief Complaint Chief Complaint Chief Complaint: shortness of breath History of Present Illness Admitted From Admitted From:: Home History Obtained From Records Reviewed: Yes History obtained from: Ed physician, patient Exam Limitations: Telemedicine History of Present Illness HPI Comment/Other: Mr. Pham is an 79yoM with history of COPD, THIAGO, not on home oxygen that presented with progressive shortness of breath and cough for the past 3 days. He was recently diagnosed and treated for multifocal pneumonia 10 days prior to this presentation. Initially he was feeling better, but started to worsen in the past few days. upon arrival to the ED, he was noted to be hypoxic on RA at 86%. Imaging was consistent with LLL pneumonia. I will admit for continued management of acute respiratory failure in the setting of pneumonia. Review of Systems Status of ROS: 10 or more systems reviewed and unremarkable except as noted in history and below PFSH Active Problems All Active Problems (Updated 08/04/24 @ 22:15 by Meera Lainez MD) Acute hypoxic respiratory failure (Acute) Acute exacerbation of chronic obstructive pulmonary disease (Acute) Pneumonia (Acute) Narcotic drug use (Acute) Pneumonia (Acute) Hemoptysis (Acute) COPD (chronic obstructive pulmonary disease) with acute bronchitis (Acute) Acquired polycythemia (Acute) Essential (primary) hypertension (Acute) Atherosclerotic heart disease of [place] coronary artery without angina pectoris (Acute) Sleep disorder, unspecified (Acute) Cor pulmonale (chronic) (Acute) Obesity, unspecified (Acute) Unspecified hydronephrosis (Acute) Type 2 diabetes mellitus without complications (Acute) Mild obstructive sleep apnea in adult (Acute) COPD (chronic obstructive pulmonary disease) (Chronic) Chronic pain (Acute) Collapsed vertebra, not elsewhere classified, thoracic region, sequela of fracture (Acute) Rheumatoid arthritis (Acute) Dyspnea (Acute) Medical History Medical History (Updated 08/04/24 @ 22:15 by Meera Lainez MD) CAP (community acquired pneumonia) COPD exacerbation Major depressive disorder, single episode, unspecified Spondylosis without myelopathy or radiculopathy, lumbosacral region Acute pulmonary embolism Pulmonary hypertension, unspecified Bradycardia, unspecified Panic disorder [episodic paroxysmal anxiety] COVID-19 Family History Family History (Updated 07/22/24 @ 14:56 by Jordyn Angel LPN) Father Afib Diabetes Mother Diabetes Social History Social History (Updated 08/04/24 @ 16:24 by Asif Belle RN) Smoking Status: Former smoker If you are a former smoker, when did you quit? (Date/Year): 1984 Number of Years Smoked: 35 How many cigarettes a day do you smoke? 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 Known occupational exposures/hazards (Current/Previous): None known Service: Yes Dates of Service: [id number] Are you following a diet prescribed by a doctor: No Are you following a special diet: No POLST Patient has POLST: No Meds/Allgy Home Medications Ambulatory Orders Medication Instructions Recorded Confirmed metformin 500 mg tablet 500 mg PO BID 02/06/13 07/23/24 methotrexate sodium 2.5 mg tablet 10 mg PO FR 11/24/15 07/23/24 folic acid 1 mg tablet 1 mg PO DAILY 04/10/16 07/23/24 aspirin 81 mg tablet,delayed 81 mg PO DAILY 02/07/18 07/23/24 release multivitamin (Multiple Vitamins 1 tab PO DAILY 01/22/19 07/23/24 tablet) glipizide 2.5 mg tablet, extended 2.5 mg PO DAILY 09/10/22 07/23/24 release 24 hr infliximab 100 mg intravenous 1 infus.set IV ONCE 09/10/22 07/23/24 solution spironolactone 25 mg tablet 12.5 mg PO DAILY 09/10/22 07/23/24 (Aldactone) amlodipine 10 mg tablet 10 mg PO QDAY 03/02/24 07/23/24 latanoprost 0.005 % eye drops 1 drp ophthalmic (eye) QDAY 03/02/24 07/23/24 levalbuterol HCl 1.25 mg/3 mL 1.25 mg inhalation Q4H 03/02/24 07/23/24 solution for nebulization atorvastatin 20 mg tablet See Rx Instructions .Route 05/12/24 07/23/24 .COMPLEX #90 tabs metoprolol succinate 50 mg 50 mg PO QDAY 06/03/24 07/23/24 tablet,extended release 24 hr prednisone 10 mg tablet 10 mg PO DIRECTED #33 tabs 07/14/24 07/23/24 fentanyl 12 mcg/hr transdermal 1 patch transdermal Q72H #10 07/22/24 07/23/24 patch patches fentanyl 50 mcg/hr transdermal 1 patch transdermal Q72H #10 07/22/24 07/23/24 patch patches baclofen 10 mg tablet See Rx Instructions .Route 07/25/24 07/25/24 .COMPLEX #90 tabs furosemide 40 mg tablet 40 mg PO DAILY #90 tabs 07/25/24 07/25/24 gabapentin 300 mg capsule 300 mg PO TID #270 caps 07/25/24 07/25/24 montelukast 4 mg chewable tablet 4 mg PO DAILY PM #90 tabs 07/25/24 07/25/24 hydrocodone 5 mg-acetaminophen 325 1 tab PO BID PRN pain #60 tabs 07/30/24 mg tablet Allergies Allergies Allergy/AdvReac Type Severity Reaction Status Date / Time ciprofloxacin Allergy Intermediate Jerking Verified 08/04/24 16:19 Movements Exam Exam Examination as recorded was obtained from patient from patient or staff reported information as well as peripheral observation Constitutional normal general appearance Eyes PERRL Chest inspection of chest normal Respiratory wheezing noted and no use of accessory muscles diffuse rhonchi Cardiovascular normal heart rate noted and regular rhythm noted Extremities normal to inspection and full ROM Conclusion/Plan Problem List (1) Acute exacerbation of chronic obstructive pulmonary disease: Plan: patient with increased cough, wheezing and shortness of breath: will manage as follows - initate duonebs q6h and incentive spirometry -initiate steroid regimen, 40mg daily and titrate as tolerated -monitor for CO2 retention with ABGs as appropriate, initiate bipap as needed per protocol for hypercapneia. (2) Acute hypoxic respiratory failure: Plan: Increase shortness of breath, documented hypoxia on room air:continue to manage as follows -supplemental oxygen and titrate as tolerated to maintain saturation above 88% -close monitoring with telemetry and pulse oximety -follow up with ABG as needed for medical management and treatment adjustment for co-existing hypercapnia (3) Pneumonia: Plan: patient with increased productive cough, reviewed CT chest independently which showed left lower lobe consolidation consistent with pneumonia. will continue to mange as follows: -continue with empiric antibiotics rocephin 1 g daily and azithromycin 500mg daily ,monitor to optimize medical management and avoid toxicity -respiratory cultures pending, adjust antibiotic regimen based on cultures -procalcitonin levels pending -duonebs, incentive spirometry, supplemental oxygen continued as noted above -trend chest imaging as needed to tailor management Qualifiers: Laterality: bilateral Lung location: lower lobe of lung Pneumonia type: due to unspecified organism Qualified Code(s): J18.9 - Pneumonia, unspecified organism (4) Type 2 diabetes mellitus without complications: Plan: Home medications reviewed: -will continue to monitor with acucheck and coverage with sliding scale (5) Essential (primary) hypertension: Plan: home medications reviewed: -will resume. Lab Results 08/04/24 17:14 08/04/24 17:14 Core Measures Anticipated LOS I expect patient to be DC'd or transferred within 96 hours.: Yes DVT/VTE - Prophylaxis VTE/DVT Device ordered at admit?: Yes Telemedicine Consult Details Provider Location & Consult Time Telemedicine consultation conducted via videoconferencing?: Yes
[2024-08-04] MEDS ORDERED: SODIUM CHLORIDE FLUSH 0.9% 10 ML SYRINGE IVP PRN (23:28)
[2024-08-04] MEDS ORDERED: ACETAMINOPHEN 325 MG TABLET PO PRN (23:28)
[2024-08-04] MEDS ORDERED: IPRATROPIUM/ALBUTEROL 3 ML NEB INH PRN (23:28)
[2024-08-04] MEDS ORDERED: ONDANSETRON 4 MG/2 ML VIAL IVP PRN (23:28)
[2024-08-04 23:56] LABS: B. PARAPERTUSSIS- RESP PCR PAN NOT DETECTED; B. PERTUSSIS- RESP PCR PANEL NOT DETECTED; C. PNEUMONIAE- RESP PCR PANEL NOT DETECTED; CORONAVIRUS 229E-RESP PCR NOT DETECTED; CORONAVIRUS HKU1-RESP PCR NOT DETECTED; CORONAVIRUS NL63-RESP PCR NOT DETECTED; CORONAVIRUS OC43-RESP PCR NOT DETECTED; HUMAN METAPNEUMOVIRUS DETECTED; INFLUENZA A- RESP PCR PANEL NOT DETECTED; INFLUENZA B - RESP PCR PANEL NOT DETECTED; M. PNEUMONIAE- RESP PCR PANEL NOT DETECTED; PARAINFLUENZA VIRUS 1 NOT DETECTED; PARAINFLUENZA VIRUS 2 NOT DETECTED; PARAINFLUENZA VIRUS 4 NOT DETECTED; RHINOVIRUS/ENTEROVIRUS NOT DETECTED; RSV- RESP PCR PANEL NOT DETECTED; SARS-CoV-2 -RESP PCR PANEL NOT DETECTED
[2024-08-05] MEDS: SODIUM CHLORIDE FLUSH 0.9% 10 ML SYRINGE IVP SCH (00:13)
[2024-08-05] MEDS ORDERED: HYDROcod/ACETAM 5/325 MG TABLET PO PRN (01:35)
[2024-08-05] MEDS: ATORVASTATIN 10 MG TABLET PO SCH (01:40)
[2024-08-05] MEDS: GABAPENTIN 300 MG CAPSULE PO SCH (01:40)
[2024-08-05] MEDS: amLODIPine 5 MG TABLET PO SCH (01:41)
[2024-08-05] MEDS: NYSTATIN CREAM 15 GM TUBE TOP SCH (01:42)
[2024-08-05] MEDS: METOPROLOL SUCCINATE 50 MG TABLET PO SCH (01:42)
[2024-08-05 05:06] LABS: HCT - HEMATOCRIT 41.1 % (42.0-52.0); HGB - HEMOGLOBIN 13.2 g/dL (14.0-18.0); LYMPHOCYTES # (AUTO) 0.6 10^3/uL (1.5-3.5); LYMPHOCYTES % (AUTO) 16.1 %; MEAN CORPUSCULAR HEMOGLOBIN 31.8 pg (27.0-31.0); MEAN CORPUSCULAR HGB CONC 32.1 g/dL (32.0-36.0); MEAN PLATELET VOLUME 10.2 fL (7.4-11.4); MONOCYTES # (AUTO) 0.1 10^3/uL (0.0-1.0); MONOCYTES % (AUTO) 1.8 %; NEUTROPHILS # (AUTO) 3.1 10^3/uL (1.5-6.6); NEUTROPHILS % (AUTO) 81.6 %; PLT - PLATELET COUNT 159 10^3/uL (130-450); RED BLOOD COUNT 4.15 10^6/uL (4.70-6.10); RED CELL DISTRIBUTION WIDTH 14.3 % (12.0-15.0); WHITE BLOOD COUNT 3.9 x10^3/uL (4.8-10.8)
[2024-08-05 05:21] LABS: CALCIUM 8.8 mg/dL (8.5-10.3); CREATININE 0.7 mg/dL (0.6-1.3); POTASSIUM 4.3 mmol/L (3.5-4.5)
[2024-08-05] MEDS: INSULIN LISPRO 300 UNIT/3 ML PEN SUBQ SCH ×2 (08:27→11:56)
[2024-08-05] MEDS: cefTRIAXone 1 GM VIAL IVP SCH (08:30)
[2024-08-05] MEDS: methylPREDNISolone SUCCINATE 40 MG/ML VIAL IVP SCH ×2 (08:30→18:31)
[2024-08-05] MEDS: LATANOPROST 0.005% OPHTH DROPS EACHEYE SCH ×2 (08:31→22:16)
[2024-08-05] MEDS: FOLIC ACID 1 MG TABLET PO SCH (08:32)
[2024-08-05] MEDS: AZITHROMYCIN INJ 500 MG in SODIUM CHLORIDE 0.9% 250 ML IV SCH (08:46)
[2024-08-05] MEDS ORDERED: cefTRIAXone 1 GM in SODIUM CHLORIDE 0.9% MINIBAG 100 ML IV SCH (09:00)
--- NOTE | 2024-08-05 12:26 | PHARMACY PROGRESS NOTE ---
Best Possible Medication History Admit Date and Time: 08/04/24 1422 Home Medications Medication Instructions Recorded Confirmed Type metformin 500 mg tablet 500 mg PO BID 02/06/13 08/05/24 History methotrexate sodium 2.5 mg tablet 10 mg PO .COMPLEX 11/24/15 08/05/24 History folic acid 1 mg tablet 1 mg PO DAILY 04/10/16 08/05/24 History aspirin 81 mg tablet,delayed 81 mg PO DAILY 02/07/18 08/05/24 History release multivitamin (Multiple Vitamins 1 tab PO DAILY 01/22/19 08/05/24 History tablet) glipizide 2.5 mg tablet, extended 2.5 mg PO DAILY 09/10/22 08/05/24 History release 24 hr infliximab 100 mg intravenous 1 infus.set IV ONCE 09/10/22 08/05/24 History solution spironolactone 25 mg tablet 12.5 mg PO DAILY 09/10/22 08/05/24 History (Aldactone) amlodipine 10 mg tablet 10 mg PO DAILY 03/02/24 08/05/24 History latanoprost 0.005 % eye drops 1 drp ophthalmic (eye) QDAY 03/02/24 08/05/24 History atorvastatin 20 mg tablet See Rx Instructions .Route 05/12/24 08/05/24 Rx .COMPLEX #90 tabs metoprolol succinate 50 mg 50 mg PO DAILY 06/03/24 08/05/24 History tablet,extended release 24 hr fentanyl 12 mcg/hr transdermal 1 patch transdermal Q72H #10 07/22/24 08/05/24 Rx patch patches fentanyl 50 mcg/hr transdermal 1 patch transdermal Q72H #10 07/22/24 08/05/24 Rx patch patches baclofen 10 mg tablet See Rx Instructions .Route 07/25/24 08/05/24 Rx .COMPLEX #90 tabs furosemide 40 mg tablet 40 mg PO DAILY #90 tabs 07/25/24 08/05/24 Rx gabapentin 300 mg capsule 300 mg PO TID #270 caps 07/25/24 08/05/24 Rx montelukast 4 mg chewable tablet 4 mg PO DAILY PM #90 tabs 07/25/24 08/05/24 Rx hydrocodone 5 mg-acetaminophen 325 1 tab PO BID PRN pain #60 tabs 07/30/24 08/05/24 Rx mg tablet albuterol sulfate 90 mcg/actuation 2 inh inhalation BID PRN shortness 08/05/24 08/05/24 History aerosol inhaler (Ventolin HFA) of breath or wheezing Processed by: Pharmacy Medications reviewed in ED?: Yes Medication History completed: Yes Patient Interview: Completed Secondary Source(s): Pharmacy records and Insurance records [facility] Statement: As the person ultimately responsible for medication therapy, providers are able to order a medication from an existing home medication list in [facility] via the "Reconcile Routine" prior to Confirmation of that medication by field support engineer. Such practice is discouraged except when the physician, in their clinical judgment, deems that a medical need exists for a medication without regard to previous use.
[2024-08-05] MEDS: IPRATROPIUM/ALBUTEROL 3 ML NEB INH SCH ×2 (13:47→15:16)
--- NOTE | 2024-08-05 16:24 | PROVIDER PROGRESS NOTE ---
Subjective Prog Note Date Prog Note Date: 08/05/24 Subjective Pt reports feeling: Improved Subjective: Admitted overnight for acute hypoxic resp failure. has COPD, but not on home o2. Does have a nebulizer at home. Feels like his breathing is better than at home, but not back to normal, continues to desaturate with any actiivty. He is concerned that his fentanyl patch be replaced today. Current Medications Current Medications Current Medications: Current Medications Generic Name Dose Route Start Last Admin Trade Name Freq PRN Reason Stop Dose Admin Acetaminophen 650 mg 08/04/24 23:28 Acetaminophen 325 Mg Tablet PO Q4HR PRN Pain 1 to 4, or Fever Hydrocodone Bitart/Acetaminophen 1 tab 08/04/24 23:28 Hydrocod/Acetam 5/325 Mg Tablet PO Q4HR PRN Pain 5 to 7 Albuterol/Ipratropium 3 ml 08/05/24 15:00 08/05/24 15:16 Ipratropium/Albuterol 3 Ml Neb INH 3 ml RTQID RACHNA Administration Amlodipine Besylate 10 mg 08/05/24 02:00 08/05/24 08:32 Amlodipine 5 Mg Tablet PO 10 mg DAILY RACHNA Administration Atorvastatin Calcium 10 mg 08/05/24 02:00 08/05/24 01:40 Atorvastatin 10 Mg Tablet PO 10 mg QDDINNER RACHNA Administration Ceftriaxone Sodium 1 gm 08/05/24 09:00 08/05/24 08:30 Ceftriaxone 1 Gm Vial IVP 1 gm DAILY RACHNA Administration Fentanyl 1 patch 08/05/24 17:00 Fentanyl 50 Mcg Patch TOP Q3D RACHNA Folic Acid 1 mg 08/05/24 09:00 08/05/24 08:32 Folic Acid 1 Mg Tablet PO 1 mg DAILY RACHNA Administration Gabapentin 300 mg 08/05/24 02:00 08/05/24 14:33 Gabapentin 300 Mg Capsule PO 300 mg TID RACHNA Administration Azithromycin 500 mg/ Sodium 250 mls @ 250 mls/hr 08/05/24 09:00 08/05/24 09:59 Chloride IV 08/06/24 09:59 Infused DAILY RACHNA Infusion Insulin Human Lispro 2 - 10 unit 08/05/24 12:00 08/05/24 11:56 Insulin Lispro 300 Unit/3 Ml Pen SUBQ 6 unit 0800,1200,1700,2100 RACHNA Administration Protocol Latanoprost 1 drops 08/05/24 21:00 Latanoprost 0.005% Ophth Drops EACHEYE HS [facility] Methylprednisolone 40 mg 08/05/24 09:00 08/05/24 08:30 Methylprednisolone Succinate 40 Mg/Ml Vial IVP 40 mg DAILY RACHNA Administration Metoprolol Succinate 50 mg 08/05/24 02:00 08/05/24 08:32 Metoprolol Succinate 50 Mg Tablet PO 50 mg DAILY RACHNA Administration Montelukast Sodium 5 mg 08/05/24 21:00 Montelukast 10 Mg Tablet PO QPM RACHNA Nystatin 1 applic 08/05/24 02:00 08/05/24 08:30 Nystatin Cream 15 Gm Tube TOP 1 applic BID RACHNA Administration Ondansetron HCl 4 mg 08/04/24 23:28 Ondansetron 4 Mg/2 Ml Vial IVP Q6HR PRN Nausea / Vomiting Sodium Chloride 10 ml 08/04/24 23:28 Sodium Chloride Flush 0.9% 10 Ml Syringe IVP PRN PRN NEEDED PER PROVIDER ORDERS Sodium Chloride 10 ml 08/05/24 01:00 08/05/24 08:31 Sodium Chloride Flush 0.9% 10 Ml Syringe IVP 10 ml 0100,0900,1700 RACHNA Administration Sterile Water 10 ml 08/05/24 09:00 08/05/24 08:30 Water For Injection,Sterile 10 Ml Vial MC 10 ml DAILY RACHNA Administration Objective Vital Signs/Intake & Output Reviewed Vital Signs: Yes Vital Signs: Vital Signs x48h Temp Pulse Pulse Resp BP Pulse Ox O2 Flow Rate 08/05/24 15:48 36.4 C L 68 16 142/57 H 94 08/05/24 15:17 2 08/05/24 15:17 63 18 2 08/05/24 11:25 36.4 C L 66 18 147/70 H 95 2 Intake & Output: Intake & Output 08/02/24 08/03/24 08/04/24 08/05/24 23:59 23:59 23:59 23:59 Intake Total 100 / 100 1514 / 1514 Balance 100 / 100 1514 / 1514 Weight (kg) 133.5 kg Objective General Appearance: positive No acute distress and Alert Eyes Bilateral: positive Normal inspection ENT: positive ENT inspection nml Neck: positive Nml inspection Respiratory: positive Chest non-tender, No respiratory distress and Wheezes (end expiratory wheeze) Cardiovascular: positive Regular rate & rhythm Abdomen: positive Non-tender and No distention Back: positive Nml inspection Skin: positive Color nml Extremities: positive Non-tender, No pedal edema and Other (chronic pretibial skin scaling, bilaterally) Neurologic/Psychiatric: positive Oriented x3 Lab Results 08/05/24 04:42 08/05/24 04:42 Other Labs: Lab Results x24hrs 08/05/24 08/05/24 08/05/24 Range/Units 11:19 07:20 04:42 WBC 3.9 L (4.8-10.8) x10^3/uL RBC 4.15 L (4.70-6.10) 10^6/uL Hgb 13.2 L (14.0-18.0) g/dL Hct 41.1 L (42.0-52.0) % MCV 99.0 H (80.0-94.0) fL MCH 31.8 H (27.0-31.0) pg MCHC 32.1 (32.0-36.0) g/dL RDW 14.3 (12.0-15.0) % Plt Count 159 (130-450) 10^3/uL MPV 10.2 (7.4-11.4) fL Neut # (Auto) 3.1 (1.5-6.6) 10^3/uL Lymph # (Auto) 0.6 L (1.5-3.5) 10^3/uL Archer # (Auto) 0.1 (0.0-1.0) 10^3/uL Eos # (Auto) 0.0 (0.0-0.7) 10^3/uL Baso # (Auto) 0.0 (0.0-0.1) 10^3/uL Absolute Nucleated RBC 0.00 x10^3/uL Nucleated RBC % 0.0 /100WBC Sodium 132 L (135-145) mmol/L Potassium 4.3 (3.5-4.5) mmol/L Chloride 99 L (101-111) mmol/L Carbon Dioxide 26 (21-32) mmol/L Anion Gap 7.0 (6-13) BUN 16 (6-20) mg/dL Creatinine 0.7 (0.6-1.3) mg/dL Estimated GFR (MDRD) 108 (>89) Glucose 240 H (74-104) mg/dL POC Whole Bld Glucose 227 213 (70-100) mg/dL Lactic Acid (0.5-2.2) mmol/L Calcium 8.8 (8.5-10.3) mg/dL Total Bilirubin (0.2-1.0) mg/dL AST (10-42) IU/L ALT (10-60) IU/L Alkaline Phosphatase (42-121) IU/L Troponin I High Sens (2.3-19.7) ng/L B-Natriuretic Peptide (5-100) pg/mL Total Protein (6.4-8.9) g/dL Albumin (3.2-5.5) g/dL Globulin (2.1-4.2) g/dL Albumin/Globulin Ratio (1.0-2.2) Nasal Adenovirus (PCR) Nasal B. parapertussis DNA (PCR) Nasal Coronavir 229E PCR Nasal Coronavir HKU1 PCR Nasal Coronavir NL63 PCR Nasal Coronavir OC43 PCR Nasal Enterovir/Rhinovir PCR Nasal Influenza B PCR Nasal Influenza A PCR Nasal Parainfluen 1 PCR Nasal Parainfluen 2 PCR Nasal Parainfluen 3 PCR Nasal Parainfluen 4 PCR Nasal RSV (PCR) Nasal B.pertussis DNA PCR Nasal C.pneumoniae (PCR) [place] Human Metapneumo PCR Nasal M.pneumoniae (PCR) Nasal SARS-CoV-2 (PCR) 08/04/24 08/04/24 08/04/24 Range/Units 22:29 22:12 17:14 WBC 7.6 (4.8-10.8) x10^3/uL RBC 4.36 L (4.70-6.10) 10^6/uL Hgb 14.0 (14.0-18.0) g/dL Hct 44.2 (42.0-52.0) % MCV 101.4 H (80.0-94.0) fL MCH 32.1 H (27.0-31.0) pg MCHC 31.7 L (32.0-36.0) g/dL RDW 14.6 (12.0-15.0) % Plt Count 176 (130-450) 10^3/uL MPV 10.0 (7.4-11.4) fL Neut # (Auto) 4.8 (1.5-6.6) 10^3/uL Lymph # (Auto) 1.8 (1.5-3.5) 10^3/uL Archer # (Auto) 0.8 (0.0-1.0) 10^3/uL Eos # (Auto) 0.2 (0.0-0.7) 10^3/uL Baso # (Auto) 0.0 (0.0-0.1) 10^3/uL Absolute Nucleated RBC 0.00 x10^3/uL Nucleated RBC % 0.0 /100WBC Sodium 137 (135-145) mmol/L Potassium 4.5 (3.5-4.5) mmol/L Chloride 100 L (101-111) mmol/L Carbon Dioxide 32 (21-32) mmol/L Anion Gap 5.0 L (6-13) BUN 14 (6-20) mg/dL Creatinine 1.0 (0.6-1.3) mg/dL Estimated GFR (MDRD) 72 L (>89) Glucose 116 H (74-104) mg/dL POC Whole Bld Glucose (70-100) mg/dL Lactic Acid 0.8 (0.5-2.2) mmol/L Calcium 9.1 (8.5-10.3) mg/dL Total Bilirubin 1.2 H (0.2-1.0) mg/dL AST 17 (10-42) IU/L ALT 13 (10-60) IU/L Alkaline Phosphatase 48 (42-121) IU/L Troponin I High Sens 16.7 (2.3-19.7) ng/L B-Natriuretic Peptide 244 H (5-100) pg/mL Total Protein 6.7 (6.4-8.9) g/dL Albumin 3.8 (3.2-5.5) g/dL Globulin 2.9 (2.1-4.2) g/dL Albumin/Globulin Ratio 1.3 (1.0-2.2) Nasal Adenovirus (PCR) NOT DETECTED Nasal B. parapertussis DNA (PCR) NOT DETECTED Nasal Coronavir 229E PCR NOT DETECTED Nasal Coronavir HKU1 PCR NOT DETECTED Nasal Coronavir NL63 PCR NOT DETECTED Nasal Coronavir OC43 PCR NOT DETECTED Nasal Enterovir/Rhinovir PCR NOT DETECTED Nasal Influenza B PCR NOT DETECTED Nasal Influenza A PCR NOT DETECTED Nasal Parainfluen 1 PCR NOT DETECTED Nasal Parainfluen 2 PCR NOT DETECTED Nasal Parainfluen 3 PCR NOT DETECTED Nasal Parainfluen 4 PCR NOT DETECTED Nasal RSV (PCR) NOT DETECTED Nasal B.pertussis DNA PCR NOT DETECTED Nasal C.pneumoniae (PCR) NOT DETECTED [place] Human Metapneumo PCR DETECTED A Nasal M.pneumoniae (PCR) NOT DETECTED Nasal SARS-CoV-2 (PCR) NOT DETECTED ABX Reporting Has patient been on IV antibiotics over the past 48 hours?: Yes Assessment/Plan Problem List (1) Acute hypoxic respiratory failure: Impression: Acute hypoxic respiratory failure. Per review of the records this patient is been struggling for almost a month with upper respiratory complaints. He was seen at the walk-in clinic on July 14, then subsequently 2 days later was seen in our emergency department. At that time he had a CT of the chest which did show multifocal pneumonia. Subsequently followed up with his PCP who commented that he had improved. Then represented to our emergency department last evening with complaints of 3 days of upper respiratory symptoms. At that time was noted to be 86% on room air. He was admitted placed on oxygen support, steroids and started on azithromycin and ceftriaxone. Today I am changing him to scheduled neb treatments 4 times daily, I will also add inhaled budesonide. (2) Acute exacerbation of chronic obstructive pulmonary disease: Impression: History of COPD. Is not on home oxygen. At home he has albuterol nebulizer and inhaler treatments, but does not appear to be on any chronic medications for his COPD. Last echocardiogram in 2021 does reveal elevated right ventricular systolic pressure. I do not have any further records with regards to this.I have ordered a repeat echocardiogram. I am increasing his steroid dosing to 40 mg of Solu-Medrol 3 times daily. I am also scheduling nebulizer treatments, albuterol Atrovent 4 times daily. I will start inhaled budesonide twice daily. He is also being treated for community- acquired pneumonia. See below. (3) Pneumonia: Impression: He has been treated appropriately with ceftriaxone and Zithromax. He will receive 3 days of Zithromax and 5 days of Rocephin. He is currently day 2 out of 5 Rocephin day 2 out of 3 Zithromax Qualifiers: Laterality: bilateral Lung location: lower lobe of lung Pneumonia type: due to unspecified organism Qualified Code(s): J18.9 - Pneumonia, unspecified organism (4) Type 2 diabetes mellitus without complications: Impression: I am treating him with sliding scale insulin. His blood sugars will be elevated due to steroid use. I have added an A1c to his morning labs. (5) Essential (primary) hypertension: Impression: We will continue his home medication of amlodipine 10 mg daily. I have spent 38 minutes in the care of this patient today. This includes time [id number], review and ordering of diagnostic imaging and laboratory studies. Monitoring the patient's signs symptoms, evaluation of medication effectiveness and patient's response to treatment.
[2024-08-05] MEDS: fentaNYL 50 MCG PATCH TOP SCH (17:00)
[2024-08-05] MEDS: DOCUSATE SODIUM 100 MG CAPSULE PO SCH (17:01)
[2024-08-05] MEDS: MONTELUKAST 10 MG TABLET PO SCH (22:17)
[2024-08-05] MEDS: INSULIN GLARGINE-YFGN 300 UNIT/3 ML PEN SUBQ SCH (22:23)
[2024-08-05] MEDS: HYDROcod/ACETAM 5/325 MG TABLET PO PRN (22:28)
[2024-08-06 05:02] LABS: BASOPHILS % (AUTO) 0.1 %; HCT - HEMATOCRIT 38.1 % (42.0-52.0); HGB - HEMOGLOBIN 12.7 g/dL (14.0-18.0); LYMPHOCYTES # (AUTO) 0.8 10^3/uL (1.5-3.5); LYMPHOCYTES % (AUTO) 12.5 %; MEAN CORPUSCULAR HEMOGLOBIN 32.5 pg (27.0-31.0); MEAN CORPUSCULAR HGB CONC 33.3 g/dL (32.0-36.0); MEAN CORPUSCULAR VOLUME 97.4 fL (80.0-94.0); MEAN PLATELET VOLUME 9.9 fL (7.4-11.4); MONOCYTES # (AUTO) 0.4 10^3/uL (0.0-1.0); MONOCYTES % (AUTO) 5.2 %; NEUTROPHILS # (AUTO) 5.5 10^3/uL (1.5-6.6); NEUTROPHILS % (AUTO) 81.9 %; PLT - PLATELET COUNT 157 10^3/uL (130-450); RED BLOOD COUNT 3.91 10^6/uL (4.70-6.10); RED CELL DISTRIBUTION WIDTH 13.8 % (12.0-15.0); WHITE BLOOD COUNT 6.7 x10^3/uL (4.8-10.8)
[2024-08-06 05:14] LABS: CALCIUM 8.9 mg/dL (8.5-10.3); CREATININE 0.7 mg/dL (0.6-1.3); POTASSIUM 4.4 mmol/L (3.5-4.5)
[2024-08-06] MEDS: BUDESONIDE 0.5 MG/2 ML NEB INH SCH (06:54)
[2024-08-06 09:29] LABS: ESTIMATED AVERAGE GLUCOSE 140 mg/dL (70-100); HEMOGLOBIN A1c% 6.5 % (4.27-6.07)
[2024-08-06] MEDS: INSULIN LISPRO 300 UNIT/3 ML PEN SUBQ SCH (12:20)
[2024-08-06 12:27] VITALS: TEMP 97.3
--- NOTE | 2024-08-06 14:44 | Discharge Summary ---
"Discharge Summary Admit Date: 08/04/24 Discharge Date: 08/06/24 Discharging Provider: Gisela Jeff PA-C Primary Care Provider: Elizabeth Code Status: Do Not Attempt Resuscitation DIAGNOSES Admission Diagnoses: Acute exacerbation of COPD Acute hypoxic respiratory failure Pneumonia Type 2 diabetes Essential hypertension Discharge Diagnoses with Status of Each Condition: Acute hypoxic respiratory failure, this patient will discharge to home on oxygen. Acute exacerbation of COPD, home on nebulizers and steroids. Community-acquired pneumonia, appropriately treated, home on the remainder of a course of Augmentin Type 2 diabetes mellitus hemoglobin A1c 6.5% this admission. At home he is on glipizide 2.5 mg daily as well as metformin 500 mg twice daily. Would consider discontinuation of the self anuria given his excellent control. And risk for hypoglycemia Essential hypertension, home amlodipine resumed on discharge. HPI History of Present Illness: Mr. Pham is an 79yoM with history of COPD, THIAGO, not on home oxygen that presented with progressive shortness of breath and cough for the past 3 days. He was recently diagnosed and treated for multifocal pneumonia 10 days prior to this presentation. Initially he was feeling better, but started to worsen in the past few days. upon arrival to the ED, he was noted to be hypoxic on RA at 86%. Imaging was consistent with LLL pneumonia. I will admit for continued management of acute respiratory failure in the setting of pneumonia. CONSULTS | PROCEDURES Procedures: Chest x-ray: Bilateral small pleural effusions and bibasilar interstitial thickening suggestive of edema although underlying infection may be present CT of the chest and thorax: No PE. Multiple focal consolidation of the bilateral lower lungs consistent with pneumonia. Mildly dilated main pulmonary artery could not be seen in the setting of pulmonary hypertension Severe coronary artery calcifications Echocardiogram was completed while inpatient. The left ventricle was not well- visualized. The left ventricular ejection fraction is grossly normal there is right ventricular enlargement and limited views the right ventricular function appears mildly reduced. There is moderate tricuspid regurgitation. Pulmonary hypertension is present. The right ventricular systolic pressure is 61 mmHg. HOSPITAL COURSE Hospital Course: Admitted via telemedicine for acute hypoxic respiratory failure with history of COPD but not on home oxygen therapy improved with treatment with azithromycin ceftriaxone nebulizer treatments. However was not able to wean off of oxygen. He was discharged to home on home oxygen therapy with plans to follow-up with his primary care provider in the near future. He will need 2 L on ambulation and can be on room air at rest. He will complete a course of Augmentin. I have also started him on inhaled budesonide and he will finish a course of prednisone. All of his other medications remain the same. ALLERGIES Allergies Allergy/AdvReac Type Severity Reaction Status Date / Time ciprofloxacin Allergy Intermediate Jerking Verified 08/04/24 16:19 Movements MEDICATIONS Ambulatory Orders Medication Instructions Recorded Confirmed metformin 500 mg tablet 500 mg PO BID 02/06/13 08/05/24 methotrexate sodium 2.5 mg tablet 10 mg PO .COMPLEX 11/24/15 08/05/24 folic acid 1 mg tablet 1 mg PO DAILY 04/10/16 08/05/24 aspirin 81 mg tablet,delayed 81 mg PO DAILY 02/07/18 08/05/24 release multivitamin (Multiple Vitamins 1 tab PO DAILY 01/22/19 08/05/24 tablet) infliximab 100 mg intravenous 1 infus.set IV ONCE 09/10/22 08/05/24 solution spironolactone 25 mg tablet 12.5 mg PO DAILY 09/10/22 08/05/24 (Aldactone) amlodipine 10 mg tablet 10 mg PO DAILY 03/02/24 08/05/24 latanoprost 0.005 % eye drops 1 drp ophthalmic (eye) QDAY 03/02/24 08/05/24 atorvastatin 20 mg tablet See Rx Instructions .Route 05/12/24 08/05/24 .COMPLEX #90 tabs metoprolol succinate 50 mg 50 mg PO DAILY 06/03/24 08/05/24 tablet,extended release 24 hr fentanyl 12 mcg/hr transdermal 1 patch transdermal Q72H #10 07/22/24 08/05/24 patch patches fentanyl 50 mcg/hr transdermal 1 patch transdermal Q72H #10 07/22/24 08/05/24 patch patches baclofen 10 mg tablet See Rx Instructions .Route 07/25/24 08/05/24 .COMPLEX #90 tabs furosemide 40 mg tablet 40 mg PO DAILY #90 tabs 07/25/24 08/05/24 gabapentin 300 mg capsule 300 mg PO TID #270 caps 07/25/24 08/05/24 montelukast 4 mg chewable tablet 4 mg PO DAILY PM #90 tabs 07/25/24 08/05/24 hydrocodone 5 mg-acetaminophen 325 1 tab PO BID PRN pain #60 tabs 07/30/24 08/05/24 mg tablet albuterol sulfate 90 mcg/actuation 2 inh inhalation BID PRN shortness 08/05/24 08/05/24 aerosol inhaler (Ventolin HFA) of breath or wheezing amoxicillin 875 mg-potassium 1 tab PO BID #6 tabs 08/06/24 clavulanate 125 mg tablet budesonide 0.5 mg/2 mL suspension 0.5 mg (2 mL) inhalation RTBID #60 08/06/24 for nebulization mL glipizide 2.5 mg tablet, extended See Rx Instructions .Route 08/06/24 release 24 hr .COMPLEX #90 tabs levalbuterol HCl 0.63 mg/3 mL 0.63 mg (3 mL) inhalation TID PRN 08/06/24 solution for nebulization shortness of breath or wheezing #90 mL prednisone 20 mg tablet 40 mg (2 x 20 mg) PO DAILY #6 tabs 08/06/24 PHYSICAL EXAM AT DISCHARGE Physical Exam Other/Comments: General Appearance: positive No acute distress and Alert Eyes Bilateral: positive Normal inspection ENT: positive ENT inspection nml Neck: positive Nml inspection Respiratory: positive Chest non-tender, No respiratory distress and Wheezes (end expiratory wheeze) Cardiovascular: positive Regular rate & rhythm Abdomen: positive Non-tender and No distention Back: positive Nml inspection Skin: positive Color nml Extremities: positive Non-tender, No pedal edema and Other (chronic pretibial skin scaling, bilaterally) Neurologic/Psychiatric: positive Oriented x3 LABS 08/06/24 04:56 08/06/24 04:56 FOLLOW UP Follow Up: Dr. Hendricks, cardiology as scheduled. Please send copy of echocardiogram report Dr. Rodriguez 7 to 10 days. TIME SPENT Time Spent in Discharge (Minutes): 35 Discharge Plan Discharge Patient Disposition: Home, Self Care Condition: Stable Prescriptions: New budesonide 0.5 mg/2 mL Suspension For Nebulization 0.5 mg inhalation RTBID Qty: 60 0RF amoxicillin-pot clavulanate 875-125 mg tablet 1 tab PO BID Qty: 6 0RF prednisone 20 mg tablet 40 mg PO DAILY Qty: 6 0RF levalbuterol HCl 0.63 mg/3 mL solution for nebulization 0.63 mg inhalation TID PRN (Reason: shortness of breath or wheezing) Qty: 90 3RF Continued atorvastatin 20 mg tablet See Rx Instructions .ROUTE .COMPLEX Qty: 90 3RF Dose Instruction: TAKE 1 TABLET DAILY AT EVENING MEAL Rx Instructions: TAKE 1 TABLET DAILY AT EVENING MEAL hydrocodone-acetaminophen 5-325 mg tablet 1 tab PO BID PRN (Reason: pain) Qty: 60 0RF glipizide 2.5 mg tablet extended release 24hr See Rx Instructions .ROUTE .COMPLEX Qty: 90 3RF Dose Instruction: TAKE 1 TABLET EVERY MORNING Rx Instructions: TAKE 1 TABLET EVERY MORNING metformin 500 MG tablet 500 mg PO BID methotrexate sodium 2.5 MG tablet 10 mg PO .COMPLEX Patient Comments: ran. says he takes it Sundays. Rx Instructions: 10 mg orally every Saturday; folic acid 1 MG tablet 1 mg PO DAILY Patient Comments: every day except Sundays aspirin 81 MG tablet,delayed release (DR/EC) 81 mg PO DAILY multivitamin [Multiple Vitamins] 1 EACH tablet 1 tab PO DAILY infliximab 100 MG recon soln 1 infus.set IV ONCE Patient Comments: Infuse 1 vial intravenously as directed every six weeks Rx Instructions: every 6 weeks spironolactone [Aldactone] 25 MG tablet 12.5 mg PO DAILY albuterol sulfate [Ventolin HFA] 90 mcg/actuation HFA aerosol inhaler 2 inh inhalation BID PRN (Reason: shortness of breath or wheezing) fentanyl 50 mcg/hr patch 72 hour 1 patch transdermal Q72H Qty: 10 0RF Patient Comments: due today at noon 08/05/24 fentanyl 12 mcg/hr patch 72 hour 1 patch transdermal Q72H Qty: 10 0RF Patient Comments: due Today at noon 08/05/24 metoprolol succinate 50 mg tablet extended release 24 hr 50 mg PO DAILY Patient Comments: TAKE 1 TABLET BY MOUTH ONCE DAILY amlodipine 10 mg tablet 10 mg PO DAILY Patient Comments: TAKE 1 TABLET BY MOUTH ONCE DAILY latanoprost 0.005 % drops 1 drp ophthalmic (eye) QDAY Patient Comments: INSTILL 1 DROP INTO EACH EYE ONCE DAILY AT BEDTIME montelukast 4 mg tablet,chewable 4 mg PO DAILY PM Qty: 90 1RF gabapentin 300 mg capsule 300 mg PO TID Qty: 270 3RF furosemide 40 mg tablet 40 mg PO DAILY Qty: 90 3RF baclofen 10 mg tablet See Rx Instructions .ROUTE .COMPLEX Qty: 90 3RF Dose Instruction: TAKE 1 TABLET BY MOUTH THREE TIMES DAILY Rx Instructions: TAKE 1 TABLET BY MOUTH THREE TIMES DAILY Diet: Regular Interventions: Belongings Inventory Last Done: 08/05/24 15:01 Discharge Last Done: 08/06/24 19:40 Discharge Checklist - Nursing Last Done: 08/06/24 19:40 Health Concerns: You are an 79-year-old male who came into the hospital with low oxygen. This was secondary to your COPD along with pneumonia. You had a virus called human metapneumovirus. This virus is what caused her lungs to be irritated. We are also treating you for pneumonia with antibiotics. You received 3 days of Zithromax and you need to complete antibiotics that have been sent to the pharmacy. This antibiotic is called Augmentin and I want you to take it for 3 additional days. Additionally I have sent a prescription for the lev albuterol AKA Xopenex to be used in your nebulizer. I have sent a prescription for prednisone. You need to take this for 3 days. I suggest that you take this in the morning with food. The reason I want you to take it in the morning as it can cause trouble with sleeping at night. It will make your blood sugars high but I only want you to take it for 3 days. Additionally, I have sent prescription for an inhaled steroid. I want you to take this with your nebulizer until the inflammation in your lungs is down. Resume all of your other home medications Call Dr. Rodriguez's office and make an appointment to be seen in 7 to 10 days. I want him to check your lungs and make sure he feels like you are healing and doing well. While you were here in the hospital we did a form called a POLST. This form is something that can be used in the case of a medical emergency. The form says that you would never want to be on a ventilator but we will do all things medically indicated to keep your life short of putting you on a ventilator. We will never do CPR and you because this would not likely result in a good outcome. I have sent oxygen to your house. You need to be on 2 L of oxygen when you are up and moving about. At rest you do not need to be on oxygen. We will send a copy of the ultrasound of your heart that we did this morning to Dr. Matos, when I have the report back. I want you to see him as scheduled We hope you feel better soon, thank you for entrusting us with your care. Care Plan Goals: Improvement of your breathing Continue to live independently at home Print Language: [place] Patient Instructions: COPD Follow-up Care: Jose Cruz Johnson MD [Primary Care Provider] -"
[2024-08-06 15:51] VITALS: BP 136/61; O2SAT 90
== END 2024-08-06 16:10 | disposition home or self-care (01) ==
LOC: ED 16:08 → MS2 16:08
PROVIDERS: ADMIT Hospitalist; ATTEND Hospitalist
DX: Z79.84 Long term (current) use of oral hypoglycemic drugs; I10 Essential (primary) hypertension; I07.1 Rheumatic tricuspid insufficiency; Z87.891 Personal history of nicotine dependence; Z68.37 Body mass index [BMI] 37.0-37.9, adult; J96.01 Acute respiratory failure with hypoxia; G47.33 Obstructive sleep apnea (adult) (pediatric); J18.9 Pneumonia, unspecified organism; Z20.818 Contact with and (suspected) exposure to other bacterial communicable diseases; Z20.822 Contact with and (suspected) exposure to COVID-19; E11.42 Type 2 diabetes mellitus with diabetic polyneuropathy; J44.1 Chronic obstructive pulmonary disease with (acute) exacerbation; Z20.828 Contact with and (suspected) exposure to other viral communicable diseases; Z79.899 Other long term (current) drug therapy; R00.8 Other abnormalities of heart beat; R94.31 Abnormal electrocardiogram [ECG] [EKG]; Z63.5 Disruption of family by separation and divorce; J44.0 Chronic obstructive pulmonary disease with (acute) lower respiratory infection; Z79.82 Long term (current) use of aspirin; E66.9 Obesity, unspecified